=== PATIENT | female | born 1985 | race Hispanic/Latino ===

== ENCOUNTER 2020-08-19 21:21 | Emergency (ER) | payer OTHER ==
[~2020-08-19] VITALS: Ht 154.9 cm; Wt 83.9 kg
[~2020-08-19 21:21] MED LIST: ALBUTEROL SULF8.5 GM; DULCOLAX SUPP10 MG PR; PRILOSEC40 MG PO; PROTONIX40 MG PO; SIMVASTATIN20 MG PO; ZOFRAN4 MG PO
--- NOTE | 2020-08-19 21:30 | Emergency Department Note ---
History of Present Illnes History of Present Illness Chief Complaint: > 20 Weeks History of Present Illness This is a 35 year old female presents to the ED for pelvic cramping with concern for not being able to feel the baby move. . Historian: Patient Arrival Mode: Car Onset (how long ago): day(s) (1) Location: suprapubic R flank Radiation: Reports non-radiation Severity: mild Onset quality: gradual Duration (how long): day(s) (1) Timing of current episode: constant Progression: unchanged Chronicity: new Context: Denies recent illness, Denies recent surgery, Denies recent immobilization, Denies recent travel, Denies trauma/injury, Denies new medications, Denies hx of DVT/PE, Denies non-compliance w/ medications, Denies other Relieving factors: none Exacerbating factors: none Associated symptoms: Denies denies other symptoms, Denies confusion, Denies c hest pain, Denies cough, Denies diaphoresis, Denies fever/chills, Denies headaches, Denies loss of appetite, Denies malaise, Denies nausea/vomiting, Denies rash, Denies seizure, Denies shortness of breath, Denies syncope, Denies weakness, Denies other Past Medical/Family History Physician Review I have reviewed the patient's past medical and family history. Any updates have been documented here. Past Medical History Recent Fever: No Clinical Suspicion of Infectio: No New/Unexplained Change in Ment: No Past Medical History: None Other Medical History: FIBROMYALGIA PCOS Past Surgical History: None Social History Smoking Cessation: Never Smoker Alcohol Use: None Any Illegal Drug Use: No Other Last Tetanus: UNK Review of Systems Review of Systems Constitutional: Reports no symptoms EENTM: Reports no symptoms Cardiovascular: Reports no symptoms Respiratory: Reports no symptoms Gastrointestinal: Reports abdominal pain (suprapubic) Genitourinary: Reports no symptoms Musculoskeletal: Reports no symptoms Integumentary: Reports no symptoms Neurological: Reports no symptoms Psychological: Reports no symptoms Endocrine: Reports no symptoms Hematological/Lymphatic: Reports no symptoms Physical Exam Related Data Allergies: Coded Allergies: Penicillins (Verified Allergy, Unknown, 04/14/08) Vital signs reviewed: Yes Physical Exam CONSTITUTIONAL Constitutional: Present well-developed, Present well-nourished HENT HENT: Present normocephalic, Present atraumatic, Present oropharynx clear/moist, Present nose normal HENT L/R: Present left ext ear normal, Present right ext ear normal EYES Eyes: Reports PERRL, Reports conjunctivae normal NECK Neck: Present ROM normal PULMONARY Pulmonary: Present effort normal, Present breath sounds normal CARDIOVASCULAR Cardiovascular: Present regular rhythm, Present heart sounds normal, Present capillary refill normal, Present normal rate GASTROINTESTINAL Abdominal: Present soft, Present bowel sounds normal, Present tender (suprapubic) GENITOURINARY Genitourinary: Present exam deferred SKIN Skin: Present warm, Present dry MUSCULOSKELETAL Musculoskeletal: Present ROM normal NEUROLOGICAL Neurological: Present alert, Present oriented x 3, Present no gross motor or sensory deficits PSYCHOLOGICAL Psychological: Present mood/affect normal, Present judgement normal Results Laboratory Lab results reviewed: Yes Laboratory comments UA : few bacteria Assessment & Plan Medical Decision Making MDM Diff Dx : demise, placentia previa, placentia abruptio Reassessment Reassessment Bedside US demonstrates active IUP with normal FHR. Assessment & Plan Final Impression: (1) UTI (urinary tract infection) (2) Discomfort during Depart Disposition: HOME, SELF-[facility] Meds Active Scripts Ondansetron Hcl* (ZOFRAN*) 4 Mg Tablet, 4 MG PO Q4HR, #20 Prov:SIGRID TOPETE NP 01/27/17 Simvastatin (SIMVASTATIN) 20 Mg Tablet, 20 MG PO HS for 30 Days Prov:SIGRID TOPETE [employer] 01/27/17 Reported Medications Albuterol Sulfate (ALBUTEROL SULFATE HFA) 8.5 Gm Hfa.aer.ad 02/04/17 ALEXANDREA CARLIN DO Aug 19, 2020 21:30
[2020-08-19 21:49] LABS: BILIRUBIN,URINE NEGATIVE (NEGATIVE); CLARITY,URINE CLOUDY (CLEAR); COLOR,URINE YELLOW (YELLOW); KETONES,URINE NEGATIVE (NEGATIVE); LEUKOCYTE ESTERASE ,URINE NEGATIVE (NEGATIVE); NITRITE,URINE NEGATIVE (NEGATIVE); PROTEIN,URINE DIPSTICK NEGATIVE (NEGATIVE); URINE UROBILINOGEN 0.2 mg/dL (0.2 - 1)
--- OUTSIDE RECORDS SUMMARY | 2020-08-19 22:10 | XMS REPORT | Continuity of Care Document ---
Author Author [employer] Information [employer] Address Unknown Phone Unavailable Care Team Providers Care Instructor Of Education Name Role Phone [employer] Information Exchange Unavailable Un available Problems Problem Status Onset Date Classification Date Reported Comments Source Unspecified abdominal pain 03/17/2017 03/20/2017 [facility] ABDOMINAL PAIN Active 03/16/2017 [facility] Discharge Diagnosis: Epigastric burning sensation 06/01/2015 06/04/2015 [facility] Discharge Diagnosis: Gastritis 06/01/2015 06/04/2015 [facility] Discharge Diagnosis: Abdominal wall pain in both upper quadrants 06/01/2015 06/04/2015 [facility] SHORTNESS OF BREATH Active 06/01/2015 [facility] Discharge Diagnosis: Pain, abdominal, nonspecific 05/21/2015 05/24/2015 [facility] ABDOMINAL PAIN, NAUSEA AND VOMITTING Active 05/21/2015 [facility] Discharge Diagnosis: Sinus headache 10/23/2014 10/26/2014 [facility] Discharge Diagnosis: Asthma exacerbation 10/23/2014 10/26/2014 [facility] HEADACH/ASTHMA/DRAINAGE Active 10/23/2014 [facility] Asthma (disorder) Active Problem 03/20/2017 [facility] Migraine (disorder) Active Problem 03/20/2017 [facility] Multiple gastric ulcers (disorder) Resolved Problem 03/2017 [facility] Polycystic ovaries (disorder) Active Problem 03/2017 [facility] Medications Medication Details Route Status Patient Instructions Ordering Provider Order Date Source Ondansetron 4 MG Disintegrating Tablet [Zofran] 4 mg = 1 tab, PO, BID, PRN Nausea and Vomiting, Dissolve tab under tongue, X 5 day, # 10 tab, 0 Refill(s) Active 03/17/2017 [facility] tramadol hydrochloride 50 MG Oral Tablet 50 mg = 1 tab, PO, BID, X 15 day, # 30 tab, 0 Refill(s) Active 03/17/2017 [facility] Zofran 4 mg, Route: IVP, Drug form: INJ, ONCE, Dosing Weight 84.233, kg, Priority: STAT, Start date: 03/17/17 0:11:00 CDT, Stop date: 03/17/17 0:11:00 CDT Inactive 03/17/2017 [facility] Morphine 4 mg, Route: IVP, ONC E, Dosing Weight 84.233, kg, Priority: STAT, Start date: 03/17/17 0:11:00 CDT, Stop date: 03/17/17 0:11:00 CDT Inactive 03/17/2017 [facility] Metoclopramide 10 MG Oral Tablet [Reglan] 10 mg, PO, Q6H, PRN nausea/vomiting, # 20 tab, 0 Refill(s) Active 06/01/2015 [facility] Dicyclomine Hydrochloride 20 MG Oral Tablet [Bentyl] 20 mg = 1 tab, PO, QID, # 20 tab, 0 Refill(s) Active 06/01/2015 [facility] Sucralfate 100 MG/ML Oral Suspension 1 gm = 10 ml, PO, Before Meals & Bedtime, # 240 ml, 0 Refill(s) Active 06/01/2015 [facility] GI cocktail Notes: [place] = antacid with simethicone 22.5 mL - lidocaine viscous 7.5 mL Inactive 06/01/2015 [facility] Ketorolac 4 days MEDICA TION WASTE Product Size: 30 mg Product Wasted: ___ mg Inactive 06/01/2015 [facility] pantoprazole 40 mg, Route: IVP , ONCE, Dosing Weight 79.545, kg, For IV push reconstitute with 10 ml 0.9% sodium chloride and push over at least 3 minutes, Priority: STAT, Start date: 06/01/15 3:12:00, Stop date: 06/01/15 3:12:00 Inactiv e 06/01/2015 [facility] Metoclopramide 10 mg, Route: I HOG HAND[employer]ER, Drug form: INJ, ONCE, Dosing Weight 79.545, kg, Priority: STAT, Start date: 06/01/15 3:12:00, Stop date: 06/01/15 3:12:00 Inactiv e 06/01/2015 [facility] Saline Flush 0.9% Notes: (Same as: BD Posiflush) Inactive 06/01/2015 [facility] Dicyclomine 20 mg, Route: IM, ONCE, Dosing Weight 79.659, kg, Priority: STAT, Start date: 06/01/15 3:12:00, Stop date: 06/01/15 3:12:00 Inactive 06/01/2015 [facility] Ondansetron 8 MG Disintegrating Tablet [Zofran] Special Instructions: Dissolve tab under tongue Active 05/21/2015 [facility] tramadol hydrochloride 50 MG Oral Tablet 50 mg = 1 tab, PO, Q6H, PRN as needed for pain, # 12 tab, 0 Refill(s) Active 05/21/2015 [facility] Sucralfate 100 MG/ML Oral Suspension 1 gm = 10 ml, PO, BID, PRN ABDOMINAL PAIN, # 100 mL, 0 Refill(s) Active 05/21/2015 [facility] Omeprazole 20 MG Enteric Coated Capsule [Prilosec] 20 mg = 1 cap, PO, Daily, # 14 cap, 0 Refill(s) Active 05/21/2015 [facility] GI cocktail Notes: [place] = antacid with simethicone 22.5 mL - lidocaine viscous 7.5 mL Inactive 05/21/2015 [facility] Morphine Notes: (Same as: MORP emma Sulfate) Inactive 05/21/2015 [facility] Protonix Notes: For IV push re constitute with 10 ml 0.9% sodium chloride and push over 2 minutes. (Same as: Protonix) Inactive 05/21/2015 [facility] Zofran Notes: (Same as: Zofran ) MEDICATION WASTE Product Size: 4 mg Product Wasted: ___ mg Inactive 05/21/2015 [facility] Sodium Chloride 0.154 MEQ/ML Injectable Solution 1,000 mL, 1,000 ml/hr, Infuse Over: 1 hr, Route: IV, 1,000, Drug form: INJ, ONCE, Priority: STAT, Dosing Weight 66.818 kg, Start date: 05/21/15 5:40:00, Duration: 1 doses or times, Stop date: 05/21/15 5:40:00 Inactive 05/21/2015 [facility] albuterol CFC free 90 mcg/inh inhalation aerosol with adapter 2 puff, INHALATION, Q4H, for wheezing, # 9 gm, 0 Refill(s) Active 10/23/2014 [facility] Sodium Chloride 0.111 MEQ/ML Nasal [place] [[place] brand of sodium chloride] 2 spray, NASAL, QID, # 1 btl, 0 Refill(s ) Active 10/23/2014 [facility] predniSONE 20 mg oral tablet 4 0 mg = 2 tab, PO, Daily, # 8 tab, 0 Refill(s) Active 10/23/2014 [facility] 24 HR Pseudoephedrine Hydrochloride 240 MG Extended Release Tablet [Sudafed] 240 mg = 1 tab, PO, Daily, for congestio n, # 5 tab, 0 Refill(s) Active 10/23/2014 [facility] ibuprofen 600 mg oral tablet S pecial Instructions: Take with food Active 10/23/2014 [facility] Ibuprofen Notes: (Same as: Mot rin) "Do Not Crush" Give with food. Inactive 10/23/2014 [facility] Tylenol Notes: Do not exceed 4 gm/day. (Same as: Tylenol) Inactive 10/23/2014 [facility] Allergies, Adverse Reactions, Alerts Substance Category Reaction Severity Reaction type Status Date Reported Comments Source penicillins Assertion Drug allergy Active [facility] Immunizations No Data Provided for This Section Results Order Name Results Value Reference Range Date Interpretation Comments Source CHEM PANEL Magnesium Lvl 1.9 1.8 - 2.4 03/17/2017 [facility] CHEM PANEL Phosphorus 4.1 2.5 - 4.5 03/17/2017 [facility] CHEM PANEL Lipase Lvl 173 73 - 393 03/17/2017 [facility] ELECTROLYTES AGAP 13.1 10.0 - 20.0 03/17/2017 [facility] ELECTROLYTES Globulin 4.5 2.7 - 4.2 03/17/2017 [facility] ELECTROLYTES B/C Ratio 8 6 - 25 03/17/2017 [facility] ELECTROLYTES A/G Ratio 0.9 0.7 - 1.6 03/17/2017 [facility] ELECTROLYTES eGFR 98 03/17/2017 Result Comment: The eGFR is calculated using the CKD-EPI formula. In most young, healthy individuals the eGFR will be >90 mL/min/1.73m2. The eGFR declines with age. An eGFR of 60-89 may be normal in some populations, particularly the elderly, for whom the CKD-EPI formula has not been extensively validated. Use of the eGFR is not recommended in the following populations:

Individuals with unstable creatinine concentrations, including patients and those with serious co-morbid conditions.

Patients with extremes in muscle mass or diet.

The data above are obtained from the National Kidney Disease Education Program (NKDEP) which additionally recommends that when the eGFR is used in patients with extremes of body mass index for purposes of drug dosing, the eGFR should be multiplied by the estimated BMI. [facility] ELECTROLYTES Bili Total 0.3 0.2 - 1.3 03/17/2017 [facility] ELECTROLYTES Alk Phos 71 39 - 136 03/17/2017 [facility] ELECTROLYTES AST 24 0 - 37 03/17/2017 [facility] ELECTROLYTES CO2 25 24 - 32 03/17/2017 [facility] ELECTROLYTES Chloride Lvl 104 95 - 109 03/17/2017 [facility] ELECTROLYTES Potassium Lvl 4.1 3.5 - 5.1 03/17/2017 [facility] ELECTROLYTES Sodium Lvl 138 135 - 145 03/17/2017 [facility] ELECTROLYTES Calcium Lvl 9.5 8.5 - 10.5 03/17/2017 [facility] ELECTROLYTES Albumin Lvl 4.1 3.5 - 5.0 03/17/2017 [facility] ELECTROLYTES ALT 42 0 - 65 03/17/2017 [facility] ELECTROLYTES Total Protein 8.6 6.4 - 8.4 03/17/2017 [facility] ELECTROLYTES Creatinine Lvl 0.8 0 0.50 - 1.40 03/17/2017 [facility] ELECTROLYTES BUN 6 7 - 22 03/17/2017 [facility] ELECTROLYTES Glucose Lvl 104 70 - 99 03/17/2017 [facility] ENDOCRINOLOGY S Preg Ne gative *NA* (03/17/17 12:22 AM) Negative 03/17/2017 [facility] HEMATOLOGY Lymphocytes 34.4 20.0 - 40.0 03/17/2017 [facility] HEMATOLOGY Monocytes 4.7 2.0 - 12.0 03/17/2017 [facility] HEMATOLOGY Lymphocytes # 3.7 1.0 - 5.5 03/17/2017 [facility] HEMATOLOGY Segs 59.5 45.0 - 75.0 03/17/2017 [facility] HEMATOLOGY Eosinophils # 0.1 0.0 - 0.5 03/17/2017 [facility] HEMATOLOGY Monocytes # 0.5 0.0 - 0.8 03/17/2017 [facility] HEMATOLOGY Segs-Bands # 6.4 1.5 - 8.1 03/17/2017 [facility] HEMATOLOGY Basophils 0.3 0.0 - 1.0 03/17/2017 [facility] HEMATOLOGY Eosinophils 1.1 0.0 - 4.0 03/17/2017 [facility] HEMATOLOGY PTT 32.9 22.9 - 35.8 03/17/2017 [facility] HEMATOLOGY PT 13.0 12.0 - 14.7 03/17/2017 [facility] HEMATOLOGY INR 0.96 0.85 - 1.17 03/17/2017 [facility] HEMATOLOGY Platelet 291 133 - 450 03/17/2017 [facility] HEMATOLOGY MPV 10.0 7.4 - 10.4 03/17/2017 [facility] HEMATOLOGY RDW 13.3 11.5 - 14.5 03/17/2017 [facility] MCH 28.1 27.0 - 31.0 03/17/2017 [facility] MCHC 33.9 32.0 - 36.0 03/17/2017 [facility] HEMATOLOGY Hct 43.8 36.0 - 48.0 03/17/2017 [facility] HEMATOLOGY MCV 82.7 80.0 - 98.0 03/17/2017 [facility] Hgb 14.9 12.0 - 16.0 03/17/2017 [facility] WBC 10.8 3.7 - 10.4 03/17/2017 [facility] RBC 5.30 4.20 - 5.40 03/17/2017 [facility] URINE AND STOOL UA Urobilinogen 0.2 0.1 - 1.0 03/17/2017 [facility] URINE AND STOOL UA Blood Negative (03/16/17 10:13 PM) Negative 03/17/2017 [facility] URINE AND STOOL UA Bili Negative *NA* (03/16/17 10:13 PM) Negative 03/17/2017 [facility] URINE AND STOOL UA Nitrite Negative (03/16/17 10:13 PM) Negative 03/17/2017 [facility] URINE AND STOOL UA Leuk Est Moderate *ABN* (03/16/17 10:13 PM) Negative 03/17/2017 [facility] URINE AND STOOL UA Spec Grav <=1.005 *NA* (03/16/17 10:13 PM) <=1.030 03/17/2017 [facility] URINE AND STOOL UA pH 6.5 5.0 - 8.0 03/17/2017 [facility] URINE AND STOOL UA Protein Negative (03/16/17 10:13 PM) Negative 03/17/2017 [facility] URINE AND STOOL UA Glucose Negative (03/16/17 10:13 PM) Negative 03/17/2017 [facility] URINE AND STOOL UA Ketones Negative *NA* (03/16/17 10:13 PM) Negative 03/17/2017 [facility] URINE AND STOOL UA Color Yellow *NA* (03/16/17 10:13 PM) Yellow 03/17/2017 [facility] URINE AND STOOL UA Turbidity Clear (03/16/17 10:13 PM) Clear 03/17/2017 [facility] URINE AND STOOL UA Bacteria Few /HPF None Seen /HPF 03/17/2017 [facility] URINE AND STOOL UA RBC 0-2 /HPF 0 - 2 03/17/2017 [facility] URINE AND STOOL UA WBC 0-2 /HPF None Seen /HPF 03/17/2017 [facility] URINE AND STOOL UA Sq Epi Moderate /LPF Few /LPF 03/17/2017 [facility] URINE AND STOOL UA Bacteria None Seen (06/01/15 4:56 AM) None Seen 06/01/2015 [facility] URINE AND STOOL UA Leuk Est Negative (06/01/15 4:56 AM) Negative 06/01/2015 [facility] URINE AND STOOL UA Nitrite Negative (06/01/15 4:56 AM) Negative 06/01/2015 [facility] URINE AND STOOL UA Sq Epi Few /LPF Few /LPF 06/01/2015 [facility] URINE AND STOOL UA Urobilinogen 0.2 0.1 - 1.0 06/01/2015 [facility] URINE AND STOOL UA WBC 0-2 /HPF None Seen /HPF 06/01/2015 [facility] URINE AND STOOL UA RBC 0-2 /HPF 0 - 2 06/01/2015 [facility] URINE AND STOOL UA Spec Grav 1.015 <=1.030 06/01/2015 [facility] URINE AND STOOL UA pH 7.0 5.0 - 8.0 06/01/2015 [facility] URINE AND STOOL UA Protein Negative (06/01/15 4:56 AM) Negative 06/01/2015 [facility] URINE AND STOOL UA Color Yellow *NA* (06/01/15 4:56 AM) Yellow 06/01/2015 [facility] URINE AND STOOL UA Turbidity Clear (06/01/15 4:56 AM) Clear 06/01/2015 [facility] URINE AND STOOL UA Ketones Negative *NA* (06/01/15 4:56 AM) Negative 06/01/2015 [facility] URINE AND STOOL UA Blood Small *ABN* (06/01/15 4:56 AM) Negative 06/01/2015 [facility] URINE AND STOOL UA Glucose Negative (06/01/15 4:56 AM) Negative 06/01/2015 [facility] URINE AND STOOL UA Bili Negative *NA* (06/01/15 4:56 AM) Negative 06/01/2015 [facility] CARDIAC ENZYMES Troponin-I <0.02 0.00 - 0.40 06/01/2015 [facility] CHEM PANEL Amylase Lvl 73 25 - 115 06/01/2015 [facility] CHEM PANEL Lipase Lvl 230 73 - 393 06/01/2015 [facility] CHEM PANEL A/G Ratio 0.9 0.7 - 1.6 06/01/2015 [facility] CHEM PANEL Globulin 4.6 2.0 - 4.0 06/01/2015 [facility] CHEM PANEL B/C Ratio 11 6 - 25 06/01/2015 [facility] CHEM PANEL AGAP 11.7 10.0 - 20.0 06/01/2015 [facility] CHEM PANEL eGFR 99 06/01/2015 Result Comment: The eGFR is calculated using the CKD-EPI formula. In most young, healthy individuals the eGFR will be >90 mL/min/1.73m2. The eGFR declines with age. An eGFR of 60-89 may be normal in some populations, particularly the elderly, for whom the CKD-EPI formula has not been extensively validated. Use of the eGFR is not recommended in the following populations:

Individuals with unstable creatinine concentrations, including patients and those with serious co-morbid conditions.

Patients with extremes in muscle mass or diet.

The data above are obtained from the National Kidney Disease Education Program (NKDEP) which additionally recommends that when the eGFR is used in patients with extremes of body mass index for purposes of drug dosing, the eGFR should be multiplied by the estimated BMI. [facility] CHEM PANEL Total Protein 8.6 6.4 - 8.4 06/01/2015 [facility] CHEM PANEL AST 24 0 - 37 06/01/2015 [facility] CHEM PANEL Chloride Lvl 104 95 - 109 06/01/2015 [facility] CHEM PANEL Calcium Lvl 8.9 8.5 - 10.5 06/01/2015 [facility] CHEM PANEL CO2 28 24 - 32 06/01/2015 [facility] CHEM PANEL Potassium Lvl 3.7 3.5 - 5.1 06/01/2015 [facility] CHEM PANEL Sodium Lvl 140 135 - 145 06/01/2015 [facility] CHEM PANEL Creatinine Lvl 0.8 0.5 - 1.4 06/01/2015 [facility] CHEM PANEL Alk Phos 72 39 - 136 06/01/2015 [facility] CHEM PANEL Albumin Lvl 4.0 3.5 - 5.0 06/01/2015 [facility] CHEM PANEL ALT 36 0 - 65 06/01/2015 [facility] CHEM PANEL Glucose Lvl 107 70 - 99 06/01/2015 [facility] CHEM PANEL BUN 9 7 - 22 06/01/2015 [facility] CHEM PANEL Bili Total 0.2 0.2 - 1.3 06/01/2015 [facility] ENDOCRINOLOGY S Preg Ne gative *NA* (06/01/15 3:18 AM) Negative 06/01/2015 [facility] HEMATOLOGY MCH 28.5 27.0 - 31.0 06/01/2015 [facility] HEMATOLOGY MCHC 33.9 32.0 - 36.0 06/01/2015 [facility] HEMATOLOGY MCV 84.2 80.0 - 98.0 06/01/2015 [facility] HEMATOLOGY MPV 9.8 7.4 - 10.4 06/01/2015 [facility] HEMATOLOGY RDW 12.4 11.5 - 14.5 06/01/2015 [facility] HEMATOLOGY Platelet 293 133 - 450 06/01/2015 [facility] HEMATOLOGY Hct 46.0 36.0 - 48.0 06/01/2015 [facility] HEMATOLOGY Hgb 15.6 12.0 - 16.0 06/01/2015 [facility] HEMATOLOGY RBC 5.46 4.20 - 5.40 06/01/2015 [facility] HEMATOLOGY WBC 11.2 3.7 - 10.4 06/01/2015 [facility] HEMATOLOGY Eosinophils # 0.2 0.0 - 0.5 06/01/2015 [facility] HEMATOLOGY Monocytes # 0.6 0.0 - 0.8 06/01/2015 [facility] HEMATOLOGY Lymphocytes # 4.6 1.0 - 5.5 06/01/2015 [facility] HEMATOLOGY Segs-Bands # 5.8 1.5 - 8.1 06/01/2015 [facility] HEMATOLOGY Eosinophils 2.1 0.0 - 4.0 06/01/2015 [facility] HEMATOLOGY Monocytes 5.0 2.0 - 12.0 06/01/2015 [facility] HEMATOLOGY Segs 51.6 45.0 - 75.0 06/01/2015 [facility] HEMATOLOGY Lymphocytes 41.1 20.0 - 40.0 06/01/2015 [facility] HEMATOLOGY Basophils 0.2 0.0 - 1.0 06/01/2015 [facility] CHEM PANEL Lipase Lvl 172 73 - 393 05/21/2015 [facility] CHEM PANEL eGFR 117 05/21/2015 <sup>1</sup>Result Comment: The eGFR is calculated using the CKD-EPI formula. In most young, healthy individuals the eGFR will be >90 mL/min/1.73m2. The eGFR declines with age. An eGFR of 60-89 may be normal in some populations, particularly the elderly, for whom the CKD-EPI formula has not been extensively validated. Use of the eGFR is not recommended in the following populations:& lt;br/>
Individuals with unstable creatinine concentrations, including patients and those with serious co-morbid conditions.

Patients with extremes in muscle mass or diet.

The data above are obtained from the National Kidney Disease Education Program (NKDEP) which additionally recommends that when the eGFR is used in patients with extremes of body mass index for purposes of drug dosing, the eGFR should be multiplied by the estimated BMI. [facility] CHEM PANEL AST 29 0 - 37 05/21/2015 [facility] CHEM PANEL CO2 23 24 - 32 05/21/2015 [facility] CHEM PANEL Calcium Lvl 8.5 8.5 - 10.5 05/21/2015 [facility] CHEM PANEL Bili Total 0.2 0.2 - 1.3 05/21/2015 [facility] CHEM PANEL Total Protein 7.8 6.4 - 8.4 05/21/2015 [facility] CHEM PANEL ALT 39 0 - 65 05/21/2015 [facility] CHEM PANEL Albumin Lvl 3.6 3.5 - 5.0 05/21/2015 [facility] CHEM PANEL Alk Phos 64 39 - 136 05/21/2015 [facility] CHEM PANEL Glucose Lvl 104 70 - 99 05/21/2015 <sup>2</sup>Interpretive Data: Adult ref erence range values reflect the clinical guidelines
of the [place] [employer]. [facility] CHEM PANEL Potassium Lvl 3.9 3.5 - 5.1 05/21/2015 [facility] CHEM PANEL BUN 5 7 - 22 05/21/2015 [facility] CHEM PANEL Sodium Lvl 141 135 - 145 05/21/2015 [facility] CHEM PANEL Chloride Lvl 108 95 - 109 05/21/2015 [facility] CHEM PANEL Creatinine Lvl 0.7 0.5 - 1.4 05/21/2015 [facility] CHEM PANEL A/G Ratio 0.9 0.7 - 1.6 05/21/2015 [facility] CHEM PANEL AGAP 13.9 10.0 - 20.0 05/21/2015 [facility] CHEM PANEL Globulin 4.2 2.0 - 4.0 05/21/2015 [facility] CHEM PANEL B/C Ratio 7 6 - 25 05/21/2015 [facility] ENDOCRINOLOGY hCG Tot <1 05/21/2015 <sup>3</sup>Interpretive Data: Reference Range:
Male 0 - 5 mIU/mL
Non- Female 0 - 5 mIU/mL

Note: hCG result should be used in conjunction with symptoms, results
of other tests, and clinical impressions.

Weeks of Gestation hCG (mIU/mL)

3 6 - 71
4 10-750
5 217 - 7,138
6 158 -31,795
7 3,697 - 163,563
8 32,065 - 149,571
9 63,803 - 151,410
10 46,506 - 186,977
11 27,832 - 210,612
14 13,950 - 62,530
15 12,039 - 70,971
16 9,040 - 56,451
17 8,175 - 55,868
18 8,099 - 58,176 [facility] HEMATOLOGY Lymphocytes # 3.1 1.0 - 5.5 05/21/2015 [facility] HEMATOLOGY Monocytes # 0.5 0.0 - 0.8 05/21/2015 [facility] HEMATOLOGY Eosinophils # 0.2 0.0 - 0.5 05/21/2015 [facility] HEMATOLOGY Segs 55.2 45.0 - 75.0 05/21/2015 [facility] HEMATOLOGY Lymphocytes 36.3 20.0 - 40.0 05/21/2015 [facility] HEMATOLOGY Eosinophils 2.6 0.0 - 4.0 05/21/2015 [facility] HEMATOLOGY Monocytes 5.8 2.0 - 12.0 05/21/2015 [facility] HEMATOLOGY Segs-Bands # 4.8 1.5 - 8.1 05/21/2015 [facility] HEMATOLOGY Basophils 0.1 0.0 - 1.0 05/21/2015 [facility] HEMATOLOGY MPV 9.7 7.4 - 10.4 05/21/2015 [facility] HEMATOLOGY Platelet 236 133 - 450 05/21/2015 [facility] Hgb 14.1 12.0 - 16.0 05/21/2015 [facility] Hct 41.6 36.0 - 48.0 05/21/2015 [facility] MCV 82.4 80.0 - 98.0 05/21/2015 [facility] MCHC 34.0 32.0 - 36.0 05/21/2015 [facility] MCH 28.0 27.0 - 31.0 05/21/2015 [facility] RDW 12.6 11.5 - 14.5 05/21/2015 [facility] WBC 8.6 3.7 - 10.4 05/21/2015 [facility] RBC 5.04 4.20 - 5.40 05/21/2015 [facility] URINE AND STOOL UA Leuk Est Negative (05/21/15 6:07 AM) Negative 05/21/2015 [facility] URINE AND STOOL UA Nitrite Negative (05/21/15 6:07 AM) Negative 05/21/2015 [facility] URINE AND STOOL UA Spec Grav 1.010 <=1.030 05/21/2015 [facility] URINE AND STOOL UA Turbidity Clear (05/21/15 6:07 AM) Clear 05/21/2015 [facility] URINE AND STOOL UA Protein Negative (05/21/15 6:07 AM) Negative 05/21/2015 [facility] URINE AND STOOL UA pH 6.0 5.0 - 8.0 05/21/2015 [facility] URINE AND STOOL UA Blood Trace *ABN* (05/21/15 6:07 AM) Negative 05/21/2015 [facility] URINE AND STOOL UA Color Yellow *NA* (05/21/15 6:07 AM) Yellow 05/21/2015 [facility] URINE AND STOOL UA Urobilinogen 0.2 0.1 - 1.0 05/21/2015 [facility] URINE AND STOOL UA Bili Negative *NA* (05/21/15 6:07 AM) Negative 05/21/2015 [facility] URINE AND STOOL UA Ketones Negative *NA* (05/21/15 6:07 AM) Negative 05/21/2015 [facility] URINE AND STOOL UA Glucose Negative (05/21/15 6:07 AM) Negative 05/21/2015 [facility] URINE AND STOOL UA WBC 0-2 /HPF None Seen /HPF 05/21/2015 [facility] URINE AND STOOL UA Sq Epi Occasional /LPF Few /LPF 05/21/2015 [facility] URINE AND STOOL Micro? Performed (05/21/15 6:07 AM) 05/21/2015 [facility] URINE AND STOOL UA Mucus Rare /LPF None Seen /LPF 05/21/2015 [facility] URINE AND STOOL UA Bacteria None Seen (05/21/15 6:07 AM) None Seen 05/21/2015 [facility] URINE AND STOOL UA RBC 0-2 /HPF 0 - 2 05/21/2015 [facility] URINE CHEM U Preg Negat janay (05/21/15 6:07 AM) Negative 05/21/2015 [facility] Pathology Reports No Data Provided for This Section Diagnostic Reports Report Value Date Source ED Abdomen/Pelvis IV contrast only CT Study: ED Abdomen/Pelvis IV contrast only CT Clinical Indication: Upper abdominal pain pain, acute - ABD PAIN Comparison: CT abdomen and pelvis from 05/21/2015 TECHNIQUE: Multiple axial CT images of the abdomen and pelvis were acquired following the administration of intravenous contrast. Sagittal and coronal reformatted images were performed. CT Radiation Dose DLP 973.72 mGy-cm FINDINGS: The visualized lung bases are clear bilaterally. Patient is status post cholecystectomy. Liver, pancreas, spleen, adrenal glands, and kidneys are normal in appearance. No intrahepatic or extrahepatic biliary duct dilatation is seen. Urinary bladder, uterus, and right ovary are unremarkable. Lobulated, hypodense, rim-enhancing 2.1 cm left ovarian cystic lesion is seen. Trace free pelvic fluid is seen. The visualized hollow viscera and appendix are normal in appearance. No free air or pathologic adenopathy is seen. The superficial soft tissues are unremarkable. No suspicious osseous lesions are seen. IMPRESSION: 1. No acute intra-abdominal/pelvic abnor mality. 2. Lobulated, rim-enhancing 2.1 cm left ovarian cystic lesion which may represent corpus luteal cyst. SL: SLEE-PC 03/17/2017 [facility] Abdomen RUQ US Name: ASHA QUINTANILLA : 1985 SEX: F Ordering Physician: Alex Plunkett Abdomen RUQ US : Jun 01, 2015 04:06:00 AM. CLINICAL INDICATION: Abdominal pain, acute Comparison Examination: None TECHNIQUE: Grayscale and limited color sonographic evaluation of the right upper quadrant of the abdomen and gallbladder region was performed with standard technique. FINDINGS: LIVER: The visualized liver shows normal size, contour, and morphology with normal parenchymal echo texture. BILE DUCTS: There is no intrahepatic biliary ductal dilation. The common bile duct measures 2 mm at the chapis hepatis. GALLBLADDER: Gallbladder contains gallstones and subcentimeter anterior polyps ( 5 and 4 mm). No gallbladder wall thickening. Negative Jovel's sign. PANCREAS: The visualized pancreas appears unremarkable. KIDNEY: The right kidney measures 10.7 cm in length. There is normal renal contour and morphology, with normal parenchymal echotexture. There is no hydronephrosis. AORTA AND INFERIOR VENA CAVA: Visualized aorta is unremarkable. IVC is not imaged. ASCITES: There is no right upper quadrant abdominal ascites. IMPRESSION: Cholelithiasis without evidence of cholecystitis. Subcentimeter gallbladder polyps. SL: 23 06/01/2015 [facility] Renal Stone CT Name: ASHA QUINTANILLA : 1985 SEX: F Ordering Physician: Ilia Gomez Renal Stone CT : May 21, 2015 06:40:00 AM. CLINICAL INDICATION: Flank Pain Comparison Examination: None TECHNIQUE: Renal Stone protocol CT is performed without iodinated contrast. Multi-detector helical CT axial images were obtained from the level of the diaphragm through the lower pelvis. Coronal and sagittal reconstructions were obtained and viewed on the workstation. Dose: The total exam DLP is 928.62 mGy-cm. FINDINGS: The lung bases are clear. There are no renal calculi, contour deforming masses or hydronephrosis. There is no ureterectasis or ureteral calculi. The bladder is unremarkable. Limited noncontrast evaluation of the gallbladder, spleen, pancreas, and adrenals is unremarkable. There is no abdominal lymphadenopathy or ascites. Mild hepatic steatosis. Mild colonic diverticulosis without evidence of diverticulitis. No evidence of bowel obstruction.Appendix is within normal limits. The uterus and adnexa appear unremarkable on noncontrast CT assessment. Free fluid in right adnexa. No suspicious osseous lesion. IMPRESSION: No evidence of obstructing urolithiasis. Mild colonic diverticulosis without evidence of diverticulitis. Free fluid in right adnexa, could represent recent ruptured ovarian cyst. SL: 23 05/21/2015 [facility] Consultation Notes No Data Provided for This Section Discharge Summaries No Data Provided for This Section History and Physicals No Data Provided for This Section Vital Signs Vital Sign Value Date Comments Source Heart Rate 83 03/17/2017 [facility] Systolic (mm Hg) 126 03/17/2017 [facility] Diastolic (mm Hg) 76 03/17/2017 [facility] Respitory Rate 16 03/17/2017 [facility] Temperature Oral (F) 98.2 F 03/17/2017 [facility] Heart Rate 87 03/17/2017 [facility] Systolic (mm Hg) 121 03/17/2017 [facility] Diastolic (mm Hg) 78 03/17/2017 [facility] Respitory Rate 16 03/17/2017 [facility] Heart Rate 93 03/17/2017 [facility] Respitory Rate 16 03/17/2017 [facility] Systolic (mm Hg) 139 03/17/2017 [facility] Diastolic (mm Hg) 92 03/17/2017 [facility] Weight 84.233 03/17/2017 [facility] BMI Calculated 35.09 03/17/2017 [facility] Height 154.94 cm 03/17/2017 [facility] Temperature Oral (F) 98.5 F 03/17/2017 [facility] Heart Rate 74 06/01/2015 [facility] Systolic (mm Hg) 137 06/01/2015 [facility] Diastolic (mm Hg) 86 06/01/2015 [facility] Respitory Rate 20 06/01/2015 [facility] Temperature Oral (F) 97.8 F 06/01/2015 [facility] Weight 79.545 06/01/2015 [facility] Respitory Rate 20 06/01/2015 [facility] BMI Calculated 33.13 06/01/2015 [facility] Temperature Oral (F) 99.2 F 06/01/2015 [facility] Heart Rate 119 06/01/2015 [facility] Systolic (mm Hg) 143 06/01/2015 [facility] Diastolic (mm Hg) 98 06/01/2015 [facility] Height 154.94 cm 06/01/2015 [facility] Temperature Oral (F) 98.1 F 05/21/2015 [facility] Respitory Rate 18 05/21/2015 [facility] Systolic (mm Hg) 144 05/21/2015 [facility] Diastolic (mm Hg) 96 05/21/2015 [facility] Heart Rate 114 05/21/2015 [facility] Weight 79.659 05/21/2015 [facility] BMI Calculated 33.18 05/21/2015 [facility] Height 154.94 cm 05/21/2015 [facility] Temperature Oral (F) 98.2 F 05/21/2015 [facility] Systolic (mm Hg) 143 05/21/2015 [facility] Diastolic (mm Hg) 93 05/21/2015 [facility] Heart Rate 118 05/21/2015 [facility] Respitory Rate 18 05/21/2015 [facility] Heart Rate 104 10/23/2014 [facility] Respitory Rate 18 10/23/2014 [facility] Diastolic (mm Hg) 88 10/23/2014 [facility] Systolic (mm Hg) 133 10/23/2014 [facility] BMI Calculated 27.83 10/23/2014 [facility] Weight 66.818 10/23/2014 [facility] Height 154.94 cm 10/23/2014 [facility] Temperature Oral (F) 98.6 F 10/23/2014 [facility] Heart Rate 127 10/23/2014 [facility] Diastolic (mm Hg) 89 10/23/2014 [facility] Respitory Rate 20 10/23/2014 [facility] Systolic (mm Hg) 134 10/23/2014 [facility] Encounters Location Location Details Encounter Type Encounter Number Reason For Visit Attending Provider ADM Date DC Date Status Source [facility] [id number] Mirella Razo 10/23/2014 10/23/2014 [facility] [id number] Alex Middleton 05/21/2015 05/21/2015 [facility] [id number] Alex Plunkett 06/01/2015 06/01/2015 [facility] [id number] Gen Sheehan 03/17/2017 03/17/2017 [facility] Procedures No Data Provided for This Section Assessment and Plan No Data Provided for This Section Plan of Care No Data Provided for This Section Social History Social History Date Source Social History TypeResponse Substance Abuse Use: None. Alcohol Current, Type Liquor. Frequency: 1-2 times per month. Smoking Status Never smoker; Exposure to Tobacco Smoke None; Cigarette Smoking Last 365 Days No; Reg Smoking Cessation Counseling No 05/21/2015 [facility] Family History No Data Provided for This Section Advance Directives No Data Provided for This Section Functional Status No Data Provided for This Section
--- OUTSIDE RECORDS SUMMARY | 2020-08-19 22:10 | XMS REPORT | Clinical Summary ---
Author Author [facility] Organization [facility] Address Unknown Phone Unavailable Care Team Providers Care Tour Production Supervisor Name Role Phone Jae Bolaños PCP Unavailable Sharpless Unavailable Allergies Comments Active Allergy Reactions Severity Noted Date Penicillins Hives 07/09/2015 Numbness, tingling Topiramate Other (See 07/20/2015 Comments) Medications End Date Status Medication Sig Dispensed Refills Start Date Active fluticasone-salmeterol Inhale 1 puff 0 (ADVAIR) 500-50 mcg/dose by mouth via diskus inhaler inhaler 2 (two) times daily. Active omeprazole (PRILOSEC) 40 Take 40 mg by 0 MG capsule mouth daily. Active ergocalciferol (VITAMIN Take 50,000 0 D2) 50,000 unit capsule Units by mouth once a week. Active albuterol HFA (VENTOLIN Inhale 1 puff 0 HFA) 90 mcg/actuation by mouth via inhaler inhaler every 6 (six) hours as needed for Wheezing. Active simvastatin (ZOCOR) 40 MG Take 40 mg by 0 tablet mouth nightly. Active gemfibrozil (LOPID) 600 Take 600 mg 0 MG tablet by mouth 2 (two) times daily before meals. Active ondansetron (ZOFRAN) 8 MG Take by mouth 0 tablet every 8 (eight) hours as needed for Nausea. Active HYDROcodone-acetaminophen Take 1 0 (LORCET-HD) 5-500 mg per capsule by capsule mouth every 6 (six) hours as needed for Pain. Active Problems Problem Noted Date Chronic cholecystitis 07/20/2015 Social History Date Tobacco Use Types Packs/Day Years Used Never Smoker Smokeless Tobacco: Never Used Alcohol Use Drinks/Week oz/Week Comments No Sex Assigned at Date Recorded Not on file Industry Job Start Date Occupation Not on file Not on file Not on file Travel End Travel History Travel Start No recent travel history available. Last Filed Vital Signs Not on file Plan of Treatment Not on file Results Not on fileafter 08/19/2019 Insurance Payer Benefit Subscriber ID Type Phone Address Plan / Group [employer] - [employer] C[employer] xxxxxxxxxxx HMO/POS NETWORK Advance Directives For more information, please contact: [facility] [address] [place] [address] Date Inactivated Comments Code Status Date Activated 07/20/2015 1:48 PM Full Code 07/20/2015 6:22 AM This code status was determined by: Patient
--- OUTSIDE RECORDS SUMMARY | 2020-08-19 22:11 | XMS REPORT | Continuity of Care Document ---
Author Author [facility] t Organization [facility] Address [address] [place] [address] Phone Unavailable Care Team Providers Care Shirt Cleaner Name Role Phone Sudeep Bolaños PCP Unavailable Mario Sheehan Attphys Josue Plunkett Attphys Isidro Middleton Attphys Edgard Razo Attphys Payers Payer Name Policy Type Policy Number Effective Date Expiration Date S ource Problems Condition Name Condition Details Condition Category Status Onset Date Resolution Date Last Treatment Date Treating Clinician Comments Source ABDOMINAL PAIN ABDO MONA PAIN Active 03/16/2017 [facility] Active 2017-03-16 00:00:00 2017-03-23 13:49:00 [facility] Chronic cholecystitis Chronic cholecystitis Disease Active 201 03-24-04 00:00:00 [facility] SHORTNESS OF BREATH SHOR TNESS OF BREATH Active 06/01/2015 [facility] Active 2015-06-01 00:00:00 2015-06-01 06:21:00 [facility] ABDOMINAL PAIN, NAUSEA AND VOMITTING ABDOMINAL PAIN, NAUSEA AND VOMITTING Active 05/21/2015 [facility] Diagnosis Ac tive 2015-05-21 01:00:00 2015-05-21 07:37:00 [facility] HEADACH/ASTHMA/DRAINAGE HEAD ACH/ASTHMA/DRAINAGE Active 10/23/2014 [facility] Diagnosis Active 2014-10-23 00:00:00 2014-10-23 15:52:00 [facility] Multiple gastric ulcers (disorder) Multiple gastric ulcers (disorder) Resolved Problem 03/20/2017 [facility] Problem Resolved 2017-03-20 03:26:21 [facility] Asthma (disorder) Asth ma (disorder) Active Problem 03/20/2017 [facility] Problem Active 2017-03-20 03:26:21 [facility] Migraine (disorder) Migr vick (disorder) Active Problem 03/20/2017 [facility] Problem Active 2017-03-20 03:26:21 [facility] Polycystic ovaries (disorder) Polycystic ovaries (disorder) Active Problem 03/20/2017 [facility] Problem Active 2017-03-20 03:26:21 [facility] Unspecified abdominal pain Uns pecified abdominal pain 03/17/2017 03/20/2017 [facility] 2017-03-17 05:0 0:00 2017-03-20 03:26:21 2017-03-20 03:26:21 [facility] Discharge Diagnosis: Epigastric burning sensation Discharge Diagnosis: Epigastric burning sensation 06/01/2015 06/04/2015 [facility] 2015-06-01 05:00:00 2015-06-04 04:40:22 2015-05 04:40:22 [facility] Discharge Diagnosis: Gastritis Discharge Diagnosis: Gastritis 06/01/2015 06/04/2015 [facility] Problem 2014 05:00:00 2015-06-04 04:40:22 2015-06-04 04:40:22 [facility] Diagnosis: Abdominal wall pain in both upper quadrants Discharge Diagnosis: Abdominal wall pain in both upper quadrants 06/01/2015 06/04/2015 [facility] Problem 2015-06-01 05:00:00 2014 04:40:22 2015-06-04 04:40:22 [facility] Discharge Diagnosis: Pain, abdominal, nonspecific Discharge Diagnosis: Pain, abdominal, nonspecific 05/21/2015 05/24/2015 [facility] Problem 2015-05-21 05:00:00 2015-05-24 02:14:13 2015-05 02:14:13 [facility] Discharge Diagnosis: Sinus headache Discharge Diagnosis: Sinus headache 10/23/2014 10/26/2014 [facility] Problem 2014-10-23 06:00:00 2014-10-26 05:54:41 2014-10-26 05:54:41 [facility] Discharge Diagnosis: Asthma exacerbation Discharge Diagnosis: Asthma exacerbation 10/23/2014 10/26/2014 [facility] Problem 2014-10-23 06:00:00 2014-10-26 05:54:41 2014-10-26 05:54:41 [facility] Allergies, Adverse Reactions, Alerts Allergy Name Allergy Type Status Severity Reaction(s) Onset Date Inacti ve Date Treating Clinician Comments Source Penicillins DA Active U 2019-06-20 00:00:00 [facility] Penicillins DA Active U 2019-06-15 00:00:00 [facility] Penicillins DA Active U 2019-05-23 00:00:00 [facility] Penicillins DA Active U 2019-05-18 00:00:00 [facility] Topiramate Drug Allergy Active Other (See Comments) 2015-07-20 00:00:00 Numbness, tingling [facility] Penicillins Drug Allergy Active Hives 2015-07-09 00:00:00 [facility] Penicillins DA Active U 2008-06-19 00:00:00 [facility] penicillins penicillins Active [facility] Social History Social Habit Start Date Stop Date Quantity Comments Source Sex Assigned At [facility] Social History 2015-05-21 10:44:59 2015-05-21 10:44:59 [facility] Smoking Status Start Date Stop Date Source Never smoker [facility] Medications Ordered Medication Name Filled Medication Name Start Date Stop Da te Current Medication? Ordering Clinician Indication Dosage Frequency Signature (SIG) Comments Components Source Ondansetron 4 MG Disintegrating Tablet [Zofran] 2017-03-17 08:09 :00 Yes 4 mg = 1 tab, PO, BID, PRN N ausea and Vomiting, Dissolve tab under tongue, X 5 day, # 10 tab, 0 Refill(s) [facility] tramadol hydrochloride 50 MG Oral Tablet 2017-03-17 08:06:00 Yes 50 mg = 1 tab, PO, BID, X 15 day, # 30 tab, 0 Refill(s) [facility] Zofran 2017-03-17 05:11:00 No 4 mg, Route: IVP, Drug form: INJ, ONCE, Dosing Weight 84.233, kg, Priority: STAT, Start date: 03/17/17 0:11:00 CDT, Stop date: 03/17/17 0:11:00 CDT [facility] Morphine 2017-03-17 05:11:00 No 4 mg, Route: IVP, ONCE, Dosing Weight 84.233, kg, Priority: STAT, Start date: 03/17/17 0:11:00 CDT, Stop date: 03/17/17 0:11:00 CDT [facility] ondansetron (ZOFRAN) 8 MG tablet 2017-03-12 11:54:45 Yes Take by mouth every 8 (eight) hours as needed for Nausea. [facility] HYDROcodone-acetaminophen (LORCET-HD) 5-500 mg per capsule 2017-03-12 11:54:45 Yes 1{capsule} Take 1 ca psule by mouth every 6 (six) hours as needed for Pain. [facility] simvastatin (ZOCOR) 40 MG tablet 2017-03-12 11:46:40 Yes 40mg QD Take 40 mg by mouth nightly. [facility] gemfibrozil (LOPID) 600 MG tablet 2017-03-12 11:46:40 Yes 600mg Take 600 mg by mouth 2 (two) times daily before meals. [facility] fluticasone-salmeterol (ADVAIR) 500-50 mcg/dose diskus inhal er 2015-07-09 14:05:11 Yes 1{puff} Q.5D Inhale 1 p uff by mouth via inhaler 2 (two) times daily. [facility] omeprazole (PRILOSEC) 40 MG capsule 2015-07-09 14:05:11 Yes 40mg QD Take 40 mg by mouth daily. [facility] ergocalciferol (VITAMIN D2) 50,000 unit capsule 2015-07-09 14:05 :11 Yes [id number] Q7D Take 50,000 Units by mouth once a week. [facility] albuterol HFA (VENTOLIN HFA) 90 mcg/actuation inhaler 2015-07-09 14:05:11 Yes 1{puff} Inhale 1 puff b y mouth via inhaler every 6 (six) hours as needed for Wheezing. [facility] Metoclopramide 10 MG Oral Tablet [Reglan] 2015-06-01 11:01:00 Yes 10 mg, PO, Q6H, PRN nausea/vomiting, # 20 tab, 0 Refill(s) [facility] Dicyclomine Hydrochloride 20 MG Oral Tablet [Bentyl] 2 11:01:00 Yes 20 mg = 1 tab, PO, QID, # 20 tab, 0 Refi ll(s) [facility] Sucralfate 100 MG/ML Oral Suspension 2015-06-01 11:01:00 Ye s 1 gm = 10 ml, PO, Before Meals & Bedtime, # 240 ml, 0 Refill(s) [facility] GI cocktail 2015-06-01 09:50:00 No Notes: G.I. Cocktail = antacid with simethicone 22.5 mL - lidocaine viscous 7.5 mL [facility] Ketorolac 2015-06-01 09:50:00 No 4 days MEDICATION WASTE Product Size: 30 mg Product Wasted: ___ mg [facility] pantoprazole 2015-06-01 08:12:00 No 40 mg, Route: IVP, ONCE, Dosing Weight 79.545, kg, For IV push reconstitute with 10 ml 0.9% sodium chloride and push over at least 3 minutes, Priority: STAT, Start date: 06/01/15 3:12:00, Stop date: 06/01/15 3:12:00 [facility] Metoclopramide 2015-06-01 08:12:00 No 10 mg, Route: IVP, Drug form: INJ, ONCE, Dosing Weight 79.545, kg, Priority: STAT, Start date: 06/01/15 3:12:00, Stop date: 06/01/15 3:12:00 [facility] Saline Flush 0.9% 2015-06-01 08:12:00 No Notes: (Same as: BD Posiflush) [facility] Dicyclomine 2015-06-01 08:12:00 No 20 mg, Route: IM, ONCE, Dosing Weight 79.659, kg, Priority: STAT, Start date: 06/01/15 3:12:00, Stop date: 06/01/15 3:12:00 [facility] Ondansetron 8 MG Disintegrating Tablet [Zofran] 2015-05-21 11:57 :00 Yes Special Instructions: Dissolve tab under tongue [facility] tramadol hydrochloride 50 MG Oral Tablet 2015-05-21 11:57:00 Yes 50 mg = 1 tab, PO, Q6H, PRN as needed for pain, # 12 tab, 0 Refill(s) [facility] Sucralfate 100 MG/ML Oral Suspension 2015-05-21 11:56:00 Ye s 1 gm = 10 ml, PO, BID, PRN ABDOMINAL PAIN, # 100 mL, 0 Refill(s) [facility] Omeprazole 20 MG Enteric Coated Capsule [Prilosec] 2015-05 11:56:00 Yes 20 mg = 1 cap, PO, Daily, # 14 cap, 0 Re fill(s) [facility] GI cocktail 2015-05-21 10:41:00 No Notes: G.I. Cocktail = antacid with simethicone 22.5 mL - lidocaine viscous 7.5 mL [facility] Morphine 2015-05-21 10:41:00 No Not es: (Same as: MORPhine Sulfate) [facility] Protonix 2015-05-21 10:41:00 No Notes: For IV push reconstitute with 10 ml 0.9% sodium chloride and push over 2 minutes. (Same as: Protonix) Johnathan Story Zofrlouie 2015-05-21 10:41:00 No Notes: (Same as: Reji) MEDICATION WASTE Product Size: 4 mg Product Wasted: ___ mg John[facility] Story Sodium Chloride 0.154 MEQ/ML Injectable Solution 2015-05-21 10:4 0:00 No 1,000 mL, 1,000 ml/hr, Infus e Over: 1 hr, Route: IV, 1,000, Drug form: INJ, ONCE, Priority: STAT, Dosing Weight 66.818 kg, Start date: 05/21/15 5:40:00, Duration: 1 doses or times, Stop date: 05/21/15 5:40:00 [facility] Story albuterol CFC free 90 mcg/inh inhalation aerosol with adapte r 2014-10-23 21:16:00 Yes 2 puff, IN HALATION, Q4H, for wheezing, # 9 gm, 0 Refill(s) John[facility] Story Sodium Chloride 0.111 MEQ/ML Nasal [employer] [[employer]ckay brand of sod ium chloride] 2014-10-23 21:15:00 Yes 2 spray, NASAL, QI D, # 1 btl, 0 Refill(s) John[facility] Story predniSONE 20 mg oral tablet 2014-10-23 21:14:00 Yes 40 mg = 2 tab, PO, Daily, # 8 tab, 0 Refill(s) Johnathan Story 24 HR Pseudoephedrine Hydrochloride 240 MG Extended Release Tablet [Sudafed] 2014-10-23 21:13:00 Yes 240 mg = 1 tab, PO, Daily, for congestion, # 5 tab, 0 Refill(s) John[facility] Story ibuprofen 600 mg oral tablet 2014-10-23 21:10:00 Yes Special Instructions: Take with food Johnathan oneil Ibuprofen 2014-10-23 21:04:00 No Notes: (Same as: [place]) "Do Not Crush" Give with food. Johnathan Story Tylenol 2014-10-23 21:00:00 No Notes: Do not exceed 4 gm/day. (Same as: Tylenol) Johnathan Story Vital Signs Vital Name Observation Time Observation Value Comments Source Heart Rate 2017-03-17 08:10:00 [facility] Story Systolic (mm Hg) 2017-03-17 08:10:00 [facility] Diastolic (mm Hg) 2017-03-17 08:10:00 [facility] Respitory Rate 2017-03-17 08:10:00 [facility] Temperature Oral (F) 2017-03-17 08:10:00 98.2 F [facility] Heart Rate 2017-03-17 06:10:00 [facility] Systolic (mm Hg) 2017-03-17 06:10:00 [facility] Diastolic (mm Hg) 2017-03-17 06:10:00 [facility] Respitory Rate 2017-03-17 06:10:00 [facility] Heart Rate 2017-03-17 05:10:00 [facility] Respitory Rate 2017-03-17 05:10:00 [facility] Systolic (mm Hg) 2017-03-17 05:10:00 [facility] Diastolic (mm Hg) 2017-03-17 05:10:00 [facility] Weight 2017-03-17 02:45:00 [facility] BMI Calculated 2017-03-17 02:45:00 [facility] Height 2017-03-17 02:45:00 154.94 cm [facility] Temperature Oral (F) 2017-03-17 02:45:00 98.5 F [facility] Heart Rate 2015-06-01 11:00:00 [facility] Systolic (mm Hg) 2015-06-01 11:00:00 [facility] Diastolic (mm Hg) 2015-06-01 11:00:00 [facility] Respitory Rate 2015-06-01 11:00:00 [facility] Temperature Oral (F) 2015-06-01 11:00:00 97.8 F [facility] Weight 2015-06-01 08:00:00 [facility] Respitory Rate 2015-06-01 08:00:00 [facility] BMI Calculated 2015-06-01 08:00:00 [facility] Temperature Oral (F) 2015-06-01 08:00:00 99.2 F [facility] Heart Rate 2015-06-01 08:00:00 [facility] Systolic (mm Hg) 2015-06-01 08:00:00 [facility] Diastolic (mm Hg) 2015-06-01 08:00:00 [facility] Height 2015-06-01 08:00:00 154.94 cm [facility] Temperature Oral (F) 2015-05-21 12:17:00 98.1 F [facility] Respitory Rate 2015-05-21 12:17:00 [facility] Systolic (mm Hg) 2015-05-21 12:17:00 [facility] Diastolic (mm Hg) 2015-05-21 12:17:00 [facility] Heart Rate 2015-05-21 12:17:00 [facility] Weight 2015-05-21 10:38:00 [facility] BMI Calculated 2015-05-21 10:38:00 [facility] Height 2015-05-21 10:38:00 154.94 cm [facility] Temperature Oral (F) 2015-05-21 10:38:00 98.2 F [facility] Systolic (mm Hg) 2015-05-21 10:38:00 [facility] Diastolic (mm Hg) 2015-05-21 10:38:00 [facility] Heart Rate 2015-05-21 10:38:00 [facility] Respitory Rate 2015-05-21 10:38:00 [facility] Heart Rate 2014-10-23 21:43:00 [facility] Respitory Rate 2014-10-23 21:43:00 [facility] Diastolic (mm Hg) 2014-10-23 21:43:00 [facility] Systolic (mm Hg) 2014-10-23 21:43:00 [facility] BMI Calculated 2014-10-23 20:39:00 [facility] Weight 2014-10-23 20:39:00 [facility] Height 2014-10-23 20:39:00 154.94 cm [facility] Temperature Oral (F) 2014-10-23 20:39:00 98.6 F [facility] Heart Rate 2014-10-23 20:39:00 [facility] Diastolic (mm Hg) 2014-10-23 20:39:00 [facility] Respitory Rate 2014-10-23 20:39:00 [facility] Systolic (mm Hg) 2014-10-23 20:39:00 [facility] Procedures This patient has no known procedures. Encounters Start Date/Time End Date/Time Encounter Type Admission Type [facility] Care Department Encounter ID Source 2017-03-16 21:35:00 2017-03-17 03:34:00 Outpatient Indrejit Sheehan [facility] [id number] 2015-06-01 02:49:00 2015-06-01 06:21:00 Outpatient Iftikhar Plunkett [facility] [id number] 2015-05-21 05:27:00 2015-05-21 07:31:00 Outpatient EmiAlex robb [facility] [id number] 2014-10-23 14:23:00 2014-10-23 15:52:00 Outpatient Dung Mirella Edgard [facility] [id number] Results Test Description Test Time Test Comments Results Result Comments Source CORD ARTERIAL BLOOD GASES 2019-06-27 11:54:00 Test Item CORD BLOOD PH (test code = PH/C) 7.33 7.20-7.30 H CORD BLOOD PCO2 (test code = PCO2/C) 34 MMHG 45-50 L CORD BLOOD PO2 (test code = PO2/C) 36 mmHg 15-25 H CORD BLOOD HCO3 (test code = HCO3/C) 18 mmol/L 15-25 N BASE EXCESS CORD (test code = ASHLEY/C) -8.0 mmol/L -5-5 L O2 SATURATION (test code = O2S/C) 66 % 25-45 H URINALYSIS [id number] 23:05:00* Test Item Value Reference Range Interpretation Comments UA COLOR (test code = COLU) YELLOW YEL/STRAW UA APPEARANCE (test code = APPU) CLOUDY CLEAR A UA GLUCOSE DIPSTICK (test code = DGLUU) NEGATIVE NEGATIVE UA BILIRUBIN DIPSTICK (test code = BILU) NEGATIVE NEGATIVE UA KETONE DIPSTICK (test code = KETU) NEGATIVE NEGATIVE UA SPECIFIC GRAVITY (test code = SGU) 1.017 1.005-1.030 N UA BLOOD DIPSTICK (test code = CYNTHIA) 3+ NEGATIVE A UA PH DIPSTICK (test code = ARTHUR) 5.0 5.0-7.0 N UA PROTEIN DIPSTICK (test code = PROU) 1+ NEGATIVE A UA UROBILINIOGEN DIPSTICK (test code = URO) 0.2 mg/dL 0.2-1.0 UA NITRITE DIPSTICK (test code = WALTER) NEGATIVE NEGATIVE UA LEUKOCYTE ESTERASE DIPSTICK (test code = LEUU) 3+ NEGA TIVE A UA WBC (test code = WBCU) >50 WBC/HPF 0-3 A UA RBC (test code = RBCU) >50 RBC/HPF 0-3 A UA BACTERIA (test code = BACU) 1+ /HPF NONE SEEN A UA SQUAMOUS CELLS (test code = SQU) 6-10 /HPF NONE SEEN A UA MUCUS (test code = MUCU) 2+ /LPF NONE SEEN A COMMENTS: Clean CatchPROCALCITONIN (PCT)2019-06-20 22:27:00* Test Item Value Reference Range Interpretation Comments PROCALCITONIN (PCT) (test code = PROCAL) < 0.05 ng/mL 0.00-0.05 N PROCALCITONIN (PCT) NORMAL RANGE (ADULT): <0.05 NG/ML. * a concentration <0.5 ng/mL represents a low risk of severe sepsis and/or septic shock.* a concentration >2 ng/mL represents a high risk of severe sepsis and/or septic shock.Nevertheless, concentrations <0.5 ng/mL do not exclude aninfection, on account of localized infections (withoutsystemic signs) which can be associated with such lowconcentrations, or a systemic infection in its initialstages (< 6 hours). Furthermore, increased procalcitonincan occur without infection. PCT concentrations between 0.5and 2.0 ng/mL should be interpreted taking into account thepatient's history. It is recommended to retest PCT within6-24 hours if any concentrations <2 ng/mL are obtained. CBC W/AUTO [id number] 22:18:00* Test Item Value Reference Range Interpretation Comments WHITE BLOOD CELL (test code = WBC) 9.93 x10 3/uL 4.5-11.0 N RED BLOOD CELL (test code = RBC) 3.60 x10 6/uL 3.54-5.02 N HEMOGLOBIN (test code = HGB) 10.3 g/dL 11.0-15.0 L HEMATOCRIT (test code = HCT) 31.3 % 33.0-45.0 L MEAN CELL VOLUME (test code = MCV) 86.9 fL 81.0-99.0 N MEAN CELL HGB (test code = MCH) 28.6 pg 27.0-33.0 N MEAN CELL HGB CONCETRATION (test code = MCHC) 32.9 g/dL 33.0-37. 0 L RED CELL DISTRIBUTION WIDTH CV (test code = RDW) 15.0 % 11.5- 14.5 H RED CELL DISTRIBUTION WIDTH SD (test code = RDW-SD) 47.7 fL 37 .0-54.0 N PLATELET COUNT (test code = PLT) 334 x10 3/uL 150-400 N MEAN PLATELET VOLUME (test code = MPV) 10.1 fL 7.0-9.0 H MANUAL DIFF REQUIRED (test code = MDIFF) YES WBC [id number] 22:18:00* Test Item Value Reference Range Interpretation Comments SEGMENTED NEUTROPHILS (test code = SEG) 62.4 % 37-69 N LYMPHOCYTE (test code = LYMPH) 27.5 % 23-55 N MONOCYTE (test code = MON) 1.8 % 0-10 N EOSINOPHIL (test code = EOS) 3.7 % 0.0-4.0 N METAMYELOCYTE (test code = META) 0.9 % 0.0-0.0 H MYELOCYTE (test code = MYELO) 3.7 % 0.0-0.0 H POLYCHROMASIA (test code = POLC) 2+ ANISOCYTOSIS (test code = ANISO) 1+ MICROCYTOSIS (test code = MICR) 1+ PLATELET ESTIMATE (test code = PLTEST) Adequate THOUSAND ADEQUATE COMPREHENSIVE METABOLIC [id number] 22:13:00* Test Item Value Reference Range Interpretation Comments SODIUM (test code = NA) 143 mEq/L 134-147 N POTASSIUM (test code = K) 3.7 mEq/L 3.4-5.0 N CHLORIDE (test code = CL) 106 mEq/L 100-108 N CARBON DIOXIDE (test code = CO2) 25 mEq/L 21-33 N ANION GAP (test code = GAP) 16 0-20 N GLUCOSE (test code = GLU) 93 mg/dL 70-110 N BLOOD UREA NITROGEN (test code = BUN) 8 mg/dL 7-18 N GLOMERULAR FILTRATION RATE (test code = GFR) 114.4 105-110 H Units of measure = ml/min/1.73 m2 CREATININE (test code = CREAT) 0.6 mg/dL 0.6-1.3 N TOTAL PROTEIN (test code = PROT) 7.2 g/dL 6.4-8.2 N ALBUMIN (test code = ALB) 2.70 g/dL 3.4-5.0 L CALCIUM (test code = CA) 8.8 mg/dL 8.0-10.5 N BILIRUBIN TOTAL (test code = BILT) 0.30 mg/dL 0.0-1.0 N SGOT/AST (test code = AST) 25 IUnit/L 15-37 N SGPT/ALT (test code = ALT) 26 IUnit/L 15-65 N ALKALINE PHOSPHATASE TOTAL (test code = ALKP) 78 IUnit/L 20-125 N CBC W/AUTO [id number] 22:13:00* Test Item Value Reference Range Interpretation Comments WHITE BLOOD CELL (test code = WBC) 9.93 x10 3/uL 4.5-11.0 N RED BLOOD CELL (test code = RBC) 3.60 x10 6/uL 3.54-5.02 N HEMOGLOBIN (test code = HGB) 10.3 g/dL 11.0-15.0 L HEMATOCRIT (test code = HCT) 31.3 % 33.0-45.0 L MEAN CELL VOLUME (test code = MCV) 86.9 fL 81.0-99.0 N MEAN CELL HGB (test code = MCH) 28.6 pg 27.0-33.0 N MEAN CELL HGB CONCETRATION (test code = MCHC) 32.9 g/dL 33.0-37. 0 L RED CELL DISTRIBUTION WIDTH CV (test code = RDW) 15.0 % 11.5- 14.5 H RED CELL DISTRIBUTION WIDTH SD (test code = RDW-SD) 47.7 fL 37 .0-54.0 N PLATELET COUNT (test code = PLT) 334 x10 3/uL 150-400 N MEAN PLATELET VOLUME (test code = MPV) 10.1 fL 7.0-9.0 H MANUAL DIFF REQUIRED (test code = MDIFF) YES WBC [id number] 22:13:00* Test Item Value Reference Range Interpretation Comments ANISOCYTOSIS (test code = ANISO) PLATELET ESTIMATE (test code = PLTEST) THOUSAND ADEQUATE CBC W/AUTO [id number] 22:13:00* Test Item Value Reference Range Interpretation Comments WHITE BLOOD CELL (test code = WBC) 9.93 x10 3/uL 4.5-11.0 N RED BLOOD CELL (test code = RBC) 3.60 x10 6/uL 3.54-5.02 N HEMOGLOBIN (test code = HGB) 10.3 g/dL 11.0-15.0 L HEMATOCRIT (test code = HCT) 31.3 % 33.0-45.0 L MEAN CELL VOLUME (test code = MCV) 86.9 fL 81.0-99.0 N MEAN CELL HGB (test code = MCH) 28.6 pg 27.0-33.0 N MEAN CELL HGB CONCETRATION (test code = MCHC) 32.9 g/dL 33.0-37. 0 L RED CELL DISTRIBUTION WIDTH CV (test code = RDW) 15.0 % 11.5- 14.5 H RED CELL DISTRIBUTION WIDTH SD (test code = RDW-SD) 47.7 fL 37 .0-54.0 N PLATELET COUNT (test code = PLT) 334 x10 3/uL 150-400 N MEAN PLATELET VOLUME (test code = MPV) 10.1 fL 7.0-9.0 H MANUAL DIFF REQUIRED (test code = MDIFF) YES WBC [id number] 22:13:00* Test Item Value Reference Range Interpretation Comments ANISOCYTOSIS (test code = ANISO) PLATELET ESTIMATE (test code = PLTEST) THOUSAND ADEQUATE COMPREHENSIVE METABOLIC [id number] 22:09:00* Test Item Value Reference Range Interpretation Comments SODIUM (test code = NA) 143 mEq/L 134-147 N POTASSIUM (test code = K) 3.7 mEq/L 3.4-5.0 N CHLORIDE (test code = CL) 106 mEq/L 100-108 N CARBON DIOXIDE (test code = CO2) 25 mEq/L 21-33 N ANION GAP (test code = GAP) 16 0-20 N GLUCOSE (test code = GLU) 93 mg/dL 70-110 N BLOOD UREA NITROGEN (test code = BUN) 8 mg/dL 7-18 N GLOMERULAR FILTRATION RATE (test code = GFR) 114.4 105-110 H Units of measure = ml/min/1.73 m2 CREATININE (test code = CREAT) 0.6 mg/dL 0.6-1.3 N TOTAL PROTEIN (test code = PROT) g/dL 6.4-8.2 ALBUMIN (test code = ALB) 2.70 g/dL 3.4-5.0 L CALCIUM (test code = CA) 8.8 mg/dL 8.0-10.5 N BILIRUBIN TOTAL (test code = BILT) mg/dL 0.0-1.0 SGOT/AST (test code = AST) 25 IUnit/L 15-37 N SGPT/ALT (test code = ALT) 26 IUnit/L 15-65 N ALKALINE PHOSPHATASE TOTAL (test code = ALKP) IUnit/L 20-125 LACTIC ACID [id number] 21:57:00* Test Item Value Reference Range Interpretation Comments LACTIC ACID POC (test code = LACTP) 1.1 MMOL/L 0.90-1.70 N Performed by certified looping machine operator at [facility] CBC W/AUTO [id number] 21:54:00* Test Item Value Reference Range Interpretation Comments WHITE BLOOD CELL (test code = WBC) 9.93 x10 3/uL 4.5-11.0 N RED BLOOD CELL (test code = RBC) 3.60 x10 6/uL 3.54-5.02 N HEMOGLOBIN (test code = HGB) 10.3 g/dL 11.0-15.0 L HEMATOCRIT (test code = HCT) 31.3 % 33.0-45.0 L MEAN CELL VOLUME (test code = MCV) 86.9 fL 81.0-99.0 N MEAN CELL HGB (test code = MCH) 28.6 pg 27.0-33.0 N MEAN CELL HGB CONCETRATION (test code = MCHC) 32.9 g/dL 33.0-37. 0 L RED CELL DISTRIBUTION WIDTH CV (test code = RDW) 15.0 % 11.5- 14.5 H RED CELL DISTRIBUTION WIDTH SD (test code = RDW-SD) 47.7 fL 37 .0-54.0 N PLATELET COUNT (test code = PLT) 334 x10 3/uL 150-400 N MEAN PLATELET VOLUME (test code = MPV) 10.1 fL 7.0-9.0 H LYMPHOCYTE % (test code = LY%) % 14.0-32.0 MANUAL DIFF REQUIRED (test code = MDIFF) - DUP AB/PEL/SC/[id number] 21:10:00 Name: A[facility]AS [facility] RushingGreenwood : 1985 Age/S: 34 / F [address] [place] [address] Unit #: [id number] Loc: [facility] Dodd [id number] Phys: Todd Ramos MD Acct: [id number] Dis Date: Status: REG ER PHONE #: [phone] Exam Date: 06/20/20192056 FAX #: [phone] Reason: FEVER EXAMS: CPT CODE: [id number] DUP AB/PEL/SC/LTD [id number] PROCEDURE: PELVIC ULTRASOUND INDICATION: Pelvic pain with fever after long vaginal delivery. Evaluate for endometritis. Hypertension. COMPARISON: None. TRANSABDOMINAL SCAN: Expected enlarged uterus measuring 16.6 x 6.4 x 10.2 cm with heterogeneous endometrial stripe measuring 1.4 cm thickness. No vascularity of the endometrium appreciated with color Doppler. Right ovary appears normal measuring 3.8 x 1.8 x 1.5 cm with arterial waveforms documented. Left ovary appears normal measuring 2.7 x 2.1 x 1.8 cm with arterial waveforms documented. No adnexal mass is seen. No free pelvic fluid. TRANSVAGINAL SCAN: Not performed. IMPRESSION: Heterogeneous, slightly thickened endometrial stripe. No endometrial hypervascularity to suggest endometritis. SL: SG-H at 2110 Reported and signed by: Isauro Vizcarra M.D. CC: Todd Ramos MD; Jae Bolaños MD Technologist: Paloma Mix RDMS(A)(OB) Trnscb Date/Time: 06/20/2019 (2109) [email or web address] Orig Print D/T: S: 06/20/2019 (2112) Probe: PAGE 1 Signed Report - US PELVIS [id number] 21:10:00 Name: ASHA CHICAS : 1985 Age/S: 34 / F [address] [place] [address] Unit #: [id number] Loc: [facility] [id number] Phys: Melanie Ramos MD Acct: [id number] Di s Date: Status: REG ER PHONE #: [phone] Exam Date: 06/20/20192056 FAX #: Reason: pain and fever after long vag delivery EXAMS: CPT CODE: [id number] US PELVIS COM PLETE 09206 PROCEDURE: PELVIC ULTRASO UND INDICATION: Pelvic pain with fever after long vaginal delivery . Evaluate for endometritis. Hypertension. COMPARISON: Non e. TRANSABDOMINAL SCAN: Expected enlarged uterus measur ing 16.6 x 6.4 x 10.2 cm with heterogeneous endometrial stripe measuring 1.4 cm thickness. No vascularity of the endometrium appreciated with color Doppler. Right ovary appears normal measuring 3.8 x 1.8 x 1.5 cm w ith arterial waveforms documented. Left ovary appears normal measuring 2. 7 x 2.1 x 1.8 cm with arterial waveforms documented. No adnexal mass is s een. No free pelvic fluid. TRANSVAGINAL SCAN: Not performed. IMPRESSION: Heterogeneous, slightly thickened endometrial stripe. No endometrial hypervascularity to suggest endometritis. SL: SG-H at 0 Reported and signed by: Isauro Vizcarra M.D. CC: Todd Ramos MD; Jae Bolaños MD Technologist: Paloma Mix RDMS(A)(OB) Trnscb Date/Time: 019 (2109) [email or web address] Orig Print D/T: S: 06/20/2019 (2112) Probe: PAGE 1 Signed Report CBC W/AUTO [id number] 07:50:00* Test Item Value Reference Range Interpretation Comments WHITE BLOOD CELL (test code = WBC) 11.87 x10 3/uL 4.5-11.0 H RED BLOOD CELL (test code = RBC) 3.25 x10 6/uL 3.54-5.02 L HEMOGLOBIN (test code = HGB) 9.2 g/dL 11.0-15.0 L HEMATOCRIT (test code = HCT) 28.8 % 33.0-45.0 L MEAN CELL VOLUME (test code = MCV) 88.6 fL 81.0-99.0 N MEAN CELL HGB (test code = MCH) 28.3 pg 27.0-33.0 N MEAN CELL HGB CONCETRATION (test code = MCHC) 31.9 g/dL 33.0-37. 0 L RED CELL DISTRIBUTION WIDTH CV (test code = RDW) 15.5 % 11.5- 14.5 H RED CELL DISTRIBUTION WIDTH SD (test code = RDW-SD) 50.0 fL 37 .0-54.0 N PLATELET COUNT (test code = PLT) 184 x10 3/uL 150-400 N MEAN PLATELET VOLUME (test code = MPV) 12.0 fL 7.0-9.0 H NEUTROPHIL % (test code = NT%) 68.5 % 56.0-77.0 N IMMATURE GRANULOCYTE % (test code = IG%) 3.5 % 0.0-2.0 H LYMPHOCYTE % (test code = LY%) 19.0 % 14.0-32.0 N MONOCYTE % (test code = MO%) 8.1 % 4.8-9.0 N EOSINOPHIL % (test code = EO%) 0.6 % 0.3-3.7 N BASOPHIL % (test code = BA%) 0.3 % 0.0-2.0 N NUCLEATED RBC % (test code = NRBC%) 0.0 % 0-0 N NEUTROPHIL # (test code = NT#) 8.14 x10 3/uL 2.0-7.6 H IMMATURE GRANULOCYTE # (test code = IG#) 0.42 x10 3/uL 0.00-0.03 H LYMPHOCYTE # (test code = LY#) 2.25 x10 3/uL 1.0-3.8 N MONOCYTE # (test code = MO#) 0.96 x10 3/uL 0.1-0.8 H EOSINOPHIL # (test code = EO#) 0.07 x10 3/uL 0.0-0.2 N BASOPHIL # (test code = BA#) 0.03 x10 3/uL 0.0-0.2 N NUCLEATED RBC # (test code = NRBC#) 0.00 x10 3/uL 0.0-0.1 N MANUAL DIFF REQUIRED (test code = MDIFF) NO RAPID PLASMA [id number] 11:30:00* Test Item Value Reference Range Interpretation Comments RAPID PLASMA REAGIN (test code = RPR) NONREACTIVE NONREACTIVE AG HEPATITIS B [id number] 11:30:00* Test Item Value Reference Range Interpretation Comments AG HEPATITIS B SURFACE (test code = HBSAG) NON REACTIVE INDEX NonRe active AB HIV 1 11:30:00* Test Item Value Reference Range Interpretation Comments AB HIV 1 2 (test code = AZQ00SB) NONREACTIVE INDEX NONREACTIVE RAPID PLASMA [id number] 14:50:00* Test Item Value Reference Range Interpretation Comments RAPID PLASMA REAGIN (test code = RPR) NONREACTIVE AG HEPATITIS B [id number] 14:50:00* Test Item Value Reference Range Interpretation Comments AG HEPATITIS B SURFACE (test code = HBSAG) NON REACTIVE INDEX NonRe active AB HIV 1 14:50:00* Test Item Value Reference Range Interpretation Comments AB HIV 1 2 (test code = [id number]) NONREACTIVE INDEX NONREACTIVE CBC W/AUTO [id number] 13:43:00* Test Item Value Reference Range Interpretation Comments WHITE BLOOD CELL (test code = WBC) 9.06 x10 3/uL 4.5-11.0 N RED BLOOD CELL (test code = RBC) 4.00 x10 6/uL 3.54-5.02 N HEMOGLOBIN (test code = HGB) 11.3 g/dL 11.0-15.0 N HEMATOCRIT (test code = HCT) 35.1 % 33.0-45.0 N MEAN CELL VOLUME (test code = MCV) 87.8 fL 81.0-99.0 N MEAN CELL HGB (test code = MCH) 28.3 pg 27.0-33.0 N MEAN CELL HGB CONCETRATION (test code = MCHC) 32.2 g/dL 33.0-37. 0 L RED CELL DISTRIBUTION WIDTH CV (test code = RDW) 15.7 % 11.5- 14.5 H RED CELL DISTRIBUTION WIDTH SD (test code = RDW-SD) 49.2 fL 37 .0-54.0 N PLATELET COUNT (test code = PLT) 230 x10 3/uL 150-400 N MEAN PLATELET VOLUME (test code = MPV) 11.9 fL 7.0-9.0 H MANUAL DIFF REQUIRED (test code = MDIFF) YES WBC [id number] 13:43:00* Test Item Value Reference Range Interpretation Comments SEGMENTED NEUTROPHILS (test code = SEG) 60.0 % 37-69 N LYMPHOCYTE (test code = LYMPH) 26.4 % 23-55 N MONOCYTE (test code = MON) 8.2 % 0-10 N MYELOCYTE (test code = MYELO) 5.4 % 0.0-0.0 H ANISOCYTOSIS (test code = ANISO) NORMAL PLATELET ESTIMATE (test code = PLTEST) Adequate THOUSAND ADEQUATE CBC W/AUTO [id number] 13:41:00* Test Item Value Reference Range Interpretation Comments WHITE BLOOD CELL (test code = WBC) 9.06 x10 3/uL 4.5-11.0 N RED BLOOD CELL (test code = RBC) 4.00 x10 6/uL 3.54-5.02 N HEMOGLOBIN (test code = HGB) 11.3 g/dL 11.0-15.0 N HEMATOCRIT (test code = HCT) 35.1 % 33.0-45.0 N MEAN CELL VOLUME (test code = MCV) 87.8 fL 81.0-99.0 N MEAN CELL HGB (test code = MCH) 28.3 pg 27.0-33.0 N MEAN CELL HGB CONCETRATION (test code = MCHC) 32.2 g/dL 33.0-37. 0 L RED CELL DISTRIBUTION WIDTH CV (test code = RDW) 15.7 % 11.5- 14.5 H RED CELL DISTRIBUTION WIDTH SD (test code = RDW-SD) 49.2 fL 37 .0-54.0 N PLATELET COUNT (test code = PLT) 230 x10 3/uL 150-400 N MEAN PLATELET VOLUME (test code = MPV) 11.9 fL 7.0-9.0 H MANUAL DIFF REQUIRED (test code = MDIFF) YES WBC [id number] 13:41:00* Test Item Value Reference Range Interpretation Comments ANISOCYTOSIS (test code = ANISO) PLATELET ESTIMATE (test code = PLTEST) THOUSAND ADEQUATE CBC W/AUTO [id number] 13:41:00* Test Item Value Reference Range Interpretation Comments WHITE BLOOD CELL (test code = WBC) 9.06 x10 3/uL 4.5-11.0 N RED BLOOD CELL (test code = RBC) 4.00 x10 6/uL 3.54-5.02 N HEMOGLOBIN (test code = HGB) 11.3 g/dL 11.0-15.0 N HEMATOCRIT (test code = HCT) 35.1 % 33.0-45.0 N MEAN CELL VOLUME (test code = MCV) 87.8 fL 81.0-99.0 N MEAN CELL HGB (test code = MCH) 28.3 pg 27.0-33.0 N MEAN CELL HGB CONCETRATION (test code = MCHC) 32.2 g/dL 33.0-37. 0 L RED CELL DISTRIBUTION WIDTH CV (test code = RDW) 15.7 % 11.5- 14.5 H RED CELL DISTRIBUTION WIDTH SD (test code = RDW-SD) 49.2 fL 37 .0-54.0 N PLATELET COUNT (test code = PLT) 230 x10 3/uL 150-400 N MEAN PLATELET VOLUME (test code = MPV) 11.9 fL 7.0-9.0 H MANUAL DIFF REQUIRED (test code = MDIFF) YES WBC [id number] 13:41:00* Test Item Value Reference Range Interpretation Comments ANISOCYTOSIS (test code = ANISO) PLATELET ESTIMATE (test code = PLTEST) THOUSAND ADEQUATE RAPID PLASMA [id number] 12:42:00* Test Item Value Reference Range Interpretation Comments RAPID PLASMA REAGIN (test code = RPR) NONREACTIVE AG HEPATITIS B [id number] 12:42:00* Test Item Value Reference Range Interpretation Comments AG HEPATITIS B SURFACE (test code = HBSAG) NON REACTIVE INDEX NonRe active AB HIV 1 12:42:00* Test Item Value Reference Range Interpretation Comments AB HIV 1 2 (test code = OTY18PA) INDEX NONREACTIVE CBC W/AUTO [id number] 12:08:00* Test Item Value Reference Range Interpretation Comments WHITE BLOOD CELL (test code = WBC) 9.06 x10 3/uL 4.5-11.0 N RED BLOOD CELL (test code = RBC) 4.00 x10 6/uL 3.54-5.02 N HEMOGLOBIN (test code = HGB) 11.3 g/dL 11.0-15.0 N HEMATOCRIT (test code = HCT) 35.1 % 33.0-45.0 N MEAN CELL VOLUME (test code = MCV) 87.8 fL 81.0-99.0 N MEAN CELL HGB (test code = MCH) 28.3 pg 27.0-33.0 N MEAN CELL HGB CONCETRATION (test code = MCHC) 32.2 g/dL 33.0-37. 0 L RED CELL DISTRIBUTION WIDTH CV (test code = RDW) 15.7 % 11.5- 14.5 H RED CELL DISTRIBUTION WIDTH SD (test code = RDW-SD) 49.2 fL 37 .0-54.0 N PLATELET COUNT (test code = PLT) 230 x10 3/uL 150-400 N MEAN PLATELET VOLUME (test code = MPV) 11.9 fL 7.0-9.0 H LYMPHOCYTE % (test code = LY%) % 14.0-32.0 MANUAL DIFF REQUIRED (test code = MDIFF) URINALYSIS [id number] 15:21:00* Test Item Value Reference Range Interpretation Comments UA COLOR (test code = COLU) YELLOW YEL/STRAW UA APPEARANCE (test code = APPU) SL CLOUDY CLEAR UA GLUCOSE DIPSTICK (test code = DGLUU) NEGATIVE NEGATIVE UA BILIRUBIN DIPSTICK (test code = BILU) NEGATIVE NEGATIVE UA KETONE DIPSTICK (test code = KETU) 1+ NEGATIVE A UA SPECIFIC GRAVITY (test code = SGU) 1.012 1.005-1.030 N UA BLOOD DIPSTICK (test code = CYNTHIA) NEGATIVE NEGATIVE UA PH DIPSTICK (test code = ARTHUR) 7.0 5.0-7.0 N UA PROTEIN DIPSTICK (test code = PROU) NEGATIVE NEGATIVE UA UROBILINIOGEN DIPSTICK (test code = URO) 0.2 mg/dL 0.2-1.0 UA NITRITE DIPSTICK (test code = WALTER) NEGATIVE NEGATIVE UA LEUKOCYTE ESTERASE DIPSTICK (test code = LEUU) NEGATIVE NEGA TIVE UA WBC (test code = WBCU) 0-3 WBC/HPF 0-3 UA RBC (test code = RBCU) 0-3 RBC/HPF 0-3 UA BACTERIA (test code = BACU) TRACE /HPF NONE SEEN UA SQUAMOUS CELLS (test code = SQU) 0-5 /HPF NONE SEEN UA MUCUS (test code = MUCU) TRACE /LPF NONE SEEN CHEM [id number] 05:22:001.9[facility] JSISR0143-22-02 05:22:004.1 [facility] CBKXG5499-43-34 05:22:56520Ezgwgxlb HermannELECTROLYTES 2017-03-17 05:22:0013.1[facility] DvsrqjfBVNGAHBKZEPK5967-52-61 05:22:004.5 [facility] PwsfgzoPZOOQYSWRTYW8695-64-44 05:22:008[facility]annELECTROLYTES 2017-03-17 05:22:000.9[facility] SjiuydwGLHXNEXROFMF5095-90-92 05:22:0098[facility] EpssgveUCIGKHZXBTRZ6934-63-93 05:22:000.3[facility] AvxkjotBXZMLKYFOOSO0082-62-38 05:22:0071[facility] CydahhyQKTLCGQLLDVN5903-78-18 05:22:0024[facility] QYEBORWQMHJT8871-52-73 05:22:0025[facility] RkpoyrhJCYXWFRUCZDX4175-75-91 05:22:00 104[facility] HxqclatUDDNPXNHXYDI0012-30-65 05:22:004.1[facility] OIMRXLKRONWA4367-02-89 05:22:86825Gzwolosj ZnswnxlNMQEIPZSNQEO8799-96-51 05:22:009.5[facility] WygcfudKOFNXABMGERE6776-10-98 05:22:004.1[facility] TZBRMMTMPUIZ1761-36-41 05:22:0042[facility] FcvvpxmDJNFVBJHEJBW7638-22-55 05:22:00 8.6[facility] JlutcaoCBIOCUIHCIPK8629-86-48 05:22:000.80[facility] LBBEUEPZOTEP2618-23-96 05:22:006[facility] WzghvzhZJAMCJRWXWVR1837-33-39 05:22:00 104[facility] SgeejovSXFAHRAKIZHLY4129-37-64 05:22:00Negative *NA*(03/17/17 12:22 AM)[facility] GlbuybzRAGGEMTLNY8259-19-59 05:22:0034.4[facility]annHEMATOLOGY 2017-03-17 05:22:004.7[facility] LcwwyyiQHJOMTJCHI0941-38-96 05:22:003.7[facility] FnsoymwNPPKHUIBDR8663-42-97 05:22:0059.5[facility] CpgtfbyCODFVBLRAU8308-14-06 05:22:000.1[facility] JzgelhcEFCUAEHUWY0127-02-25 05:22:000.5[facility] ZOYJIHUXJP3304-01-52 05:22:006.4[facility] LxhiatoECJTTVOBUP9175-65-49 05:22:000.3 [facility] GfbkndaTNKUGWTEHQ2229-81-73 05:22:001.1[facility]annHEMATOLOGY 2017-03-17 05:22:00* Test Item Value Reference Range Interpretation Comments PTT (test code = PTT) 32.9 s 22.9-35.8 [facility] LnkkuknVJNTATFETM9044-25-11 05:22:00* Test Item Value Reference Range Interpretation Comments PT (test code = PT) 13.0 s 12.0-14.7 [facility] RfujiddZAZDIXZZGE0513-29-68 05:22:000.96[facility]annHEMATOLOGY 2017-03-17 05:22:56370Rofuyydm WwtxcwuJYGRZLKRII0697-95-74 05:22:0010.0[facility] LuopwxjGYQXFSEOEJ3499-13-78 05:22:0013.3[facility] GzqyiquOPCEHWTHIW0466-47-39 05:22:00* Test Item Value Reference Range Interpretation Comments MCH (test code = MCH) 28.1 pg 27.0-31.0 [facility] SrxpyguIOMXKSBIWN3767-23-66 05:22:0033.9[facility]annHEMATOLOGY 2017-03-17 05:22:0043.8[facility] TyaabnpAFJOCYXVQG5080-58-01 05:22:0082.7[facility] SjorrfvEUAHEBLSDX9729-01-18 05:22:0014.9[facility] EjyftvzLFUVTHBZWT2223-05-25 05:22:0010.8[facility] ElsncryAHCMCEUJLC6755-62-50 05:22:005.30[facility] URINE AND HTBNX8378-82-29 03:13:000.2[facility] SGAWD5358-38-50 03:13:00Negative (03/16/17 10:13 PM)[facility] MMXFG5864-57-63 03:13:00Negative *NA*(03/16/17 10:13 PM)[facility] YSGIQ5292-95-14 03:13:00Negative (03/16/17 10:13 PM)[facility] LIEOM7380-26-25 03:13:00Moderate *ABN*(03/16/17 10:13 PM)[facility] VAWJV9917-75-77 03:13:00<=1.005 *NA*(03/16/17 10:13 PM)[facility] UPRMS6630-91-00 03:13:00* Test Item Value Reference Range Interpretation Comments UA pH (test code = UA pH) 6.5 1 5.0-8.0 [facility] TDAWJ9453-35-30 03:13:00Negative (03/16/17 10:13 PM) [facility] FPTEV0482-24-47 03:13:00Negative (03/16/17 10:13 PM) [facility] VMKZB1946-79-39 03:13:00Negative *NA*(03/16/17 10:13 PM) [facility] PBGBU4256-89-79 03:13:00Yellow *NA*(03/16/17 10:13 PM) [facility] XLIDJ4071-53-89 03:13:00Clear (03/16/17 10:13 PM) [facility] SJIBR9049-95-66 09:56:00None Seen (06/01/15 4:56 AM) [facility] WGLHT2335-63-16 09:56:00Negative (06/01/15 4:56 AM) [facility] OHACX2436-65-06 09:56:00Negative (06/01/15 4:56 AM) [facility] QRKWQ8067-64-70 09:56:000.2[facility] YHGMJ2536-85-74 09:56:00* Test Item Value Reference Range Interpretation Comments UA Spec Grav (test code = UA Spec Grav) 1.015 1 [facility] FCWXE5121-97-74 09:56:00* Test Item Value Reference Range Interpretation Comments UA pH (test code = UA pH) 7.0 1 5.0-8.0 [facility] BITHJ8807-36-44 09:56:00Negative (06/01/15 4:56 AM) [facility] BGIRW5657-13-35 09:56:00Yellow *NA*(06/01/15 4:56 AM) [facility] ZNASG1974-55-67 09:56:00Clear (06/01/15 4:56 AM) [facility] IXMAE1857-40-14 09:56:00Negative *NA*(06/01/15 4:56 AM) [facility] ZFNDK2295-16-94 09:56:00Small *ABN*(06/01/15 4:56 AM) [facility] JAFKR4669-44-06 09:56:00Negative (06/01/15 4:56 AM) [facility] OMZZX6035-54-66 09:56:00Negative *NA*(06/01/15 4:56 AM) [facility]annCARDIAC SQFIWUE7207-78-24 08:18:00<0.02[facility]annCHEM LVBIX9586-78-06 08:18:0073[facility]annCHEM YVVRL6416-68-44 08:18:29071 [facility]CHE[facility] AWGDH2738-28-34 08:18:000.9[facility]annCHEM PANEL 2015-06-01 08:18:004.6[facility]annCHEM TVGWI3068-38-57 08:18:0011[facility]annCHE[facility] DYBGT2432-93-32 08:18:0011.7[facility]annCHEM SJGLR6417-30-14 08:18:0099[facility]annCHE[facility] PXVNN5770-44-34 08:18:008.6[facility]annCHEM VJPHV2418-32-13 08:18:0024[facility]annCHEM ODOGJ3011-37-87 08:18:20603 [facility]annCHE[facility] UAGOT9320-62-97 08:18:008.9[facility]annCHEM PANEL 2015-06-01 08:18:0028[facility]annCHEM SSVPL9853-77-68 08:18:003.7[facility]annCHEM LRFLY4016-11-18 08:18:65216Rcozgxrd HermannCHEM VTQSI7052-32-68 08:18:000.8[facility]annCHEM SYLLD8152-82-50 08:18:0072[facility]annCHE[facility] VQIYD8234-08-32 08:18:004.0[facility]annCHEM KWMNK6430-29-40 08:18:0036 [facility]annCHE[facility] OKVTD1064-81-47 08:18:98669Hflfzvzt HermannCHEM PANEL 2015-06-01 08:18:009[facility]annCHEM ZAQOY4505-18-06 08:18:000.2[facility] LmkkytdGNICPEMWITSEO7583-31-74 08:18:00Negative *NA*(06/01/15 3:18 AM)[facility] QcdkmwfQLCDSTWTWZ1155-20-11 08:18:00* Test Item Value Reference Range Interpretation Comments MCH (test code = MCH) 28.5 pg 27.0-31.0 [facility] QktejojBQYKPQXOWG3748-48-39 08:18:0033.9[facility]annHEMATOLOGY 2015-06-01 08:18:0084.2[facility] WckiudaZHBKMXXJRP2738-65-24 08:18:009.8[facility] QjsijucBZJYXNVIMV5445-26-02 08:18:0012.4[facility] LihlmczAURKAYCLIS6848-42-25 08:18:10880Eieqovjr HfhoewlDHKZMVPSAI7923-39-23 08:18:0046.0[facility] ICKZQGIQUO2346-32-53 08:18:0015.6[facility] NqfxaerNYUPYXVXFP3928-83-59 08:18:00 5.46[facility] XhsqtprGDYSITQUJD3300-99-53 08:18:0011.2[facility]annHEMATOLOGY 2015-06-01 08:18:000.2[facility] MkfktkrSNASDUKNOH2615-77-32 08:18:000.6[facility] CnccifpGBVIZUZMFY3426-92-28 08:18:004.6[facility] RnpuggaBRUKGNKISZ5129-31-55 08:18:005.8[facility] TdgfnbiIIJZHOJALW7874-03-80 08:18:002.1[facility] VUAMEDMXMG0448-73-03 08:18:005.0[facility] NzwtxptNWMMOKJGMM6309-30-37 08:18:00 51.6[facility] QypspxhSGKMOIXPIC1104-78-83 08:18:0041.1[facility]annHEMATOLOGY 2015-06-01 08:18:000.2[facility]annCHEM URGQM0316-41-77 11:07:88012Havubxro HermannCHEM CUIAL1104-70-29 11:07:71770Ijuxkeuq HermannCHEM DJKVR4002-08-95 11:07:0029[facility]annCHE[facility] YJCWO6128-17-67 11:07:0023[facility]annCHEM OXTQS5583-16-81 11:07:008.5[facility]annCHEM WUDRW6577-82-70 11:07:000.2 [facility]annCHE[facility] YZMTZ2102-14-80 11:07:007.8[facility]annCHEM PANEL 2015-05-21 11:07:0039[facility]annCHEM TCLIB2554-61-35 11:07:003.6[facility]annCHEM XEZTG8303-86-84 11:07:0064[facility]annCHEM HKWNZ5251-27-88 11:07:13317Lnmsufed HermannCHEM FNWVU3782-78-75 11:07:003.9[facility]annCHEM OBCNT3867-37-33 11:07:005[facility]annCHEM KSTYK0262-73-46 11:07:34888 [facility]annCHE[facility] LKDAN7987-68-04 11:07:21957Toblbcpp HermannCHEM PANEL 2015-05-21 11:07:000.7[facility]annCHEM TOAXM1122-49-42 11:07:000.9[facility]annCHEM MQTLL2242-85-35 11:07:0013.9[facility]annCHEM WGNFK0441-04-73 11:07:004.2[facility]annCHEM KKGDF8499-75-21 11:07:007[facility] DRXWDQEICMEEN7245-40-65 11:07:00<1[facility] GufcwpjPPPHAEBLSL6917-07-25 11:07:00 3.1[facility] NaqdlouGSREGAUBUQ6552-89-91 11:07:000.5[facility]annHEMATOLOGY 2015-05-21 11:07:000.2[facility] IjpamcgHDGGAXVMJF8718-48-37 11:07:0055.2[facility] FmmpcveNZCDTIIHRL5481-05-89 11:07:0036.3[facility] LsrmnquBJGAFWMBHB1195-27-30 11:07:002.6[facility] CtthtqlUVIIGEOWPR2916-09-84 11:07:005.8[facility] ALIRVRAHXK6310-50-78 11:07:004.8[facility] NalapetSLMUOBNCMF7337-15-30 11:07:000.1 [facility] GadlljlHKTCUJBIWP0876-42-58 11:07:009.7[facility]annHEMATOLOGY 2015-05-21 11:07:68468Nyepxmkh SbqtfemABIBOKQVUA9516-64-00 11:07:0014.1[facility] CegntcnLPBNPWBPYL6711-05-79 11:07:0041.6[facility] SenmvliCUYVMRPWJN5611-85-82 11:07:0082.4[facility] VoteetnEXVPCKVIPB9035-15-25 11:07:0034.0[facility] XNYFDEQJJO7690-76-93 11:07:00* Test Item Value Reference Range Interpretation Comments MCH (test code = MCH) 28.0 pg 27.0-31.0 [facility] BasxirrREMTTYMITY6845-02-89 11:07:0012.6[facility]annHEMATOLOGY 2015-05-21 11:07:008.6[facility] ThdewriTFEWJSJYBB6063-60-49 11:07:005.04[facility] PPLES8423-42-94 11:07:00Negative (05/21/15 6:07 AM)[facility] AIDJZ9909-06-89 11:07:00Negative (05/21/15 6:07 AM)[facility] IOLTT2893-11-00 11:07:00* Test Item Value Reference Range Interpretation Comments UA Spec Grav (test code = UA Spec Grav) 1.010 1 [facility] UEAOJ1787-15-51 11:07:00Clear (05/21/15 6:07 AM)[facility] [id number] 11:07:00Negative (05/21/15 6:07 AM)[facility] [id number] 11:07:00* Test Item Value Reference Range Interpretation Comments UA pH (test code = UA pH) 6.0 1 5.0-8.0 [facility] [id number] 11:07:00Trace *ABN*(05/21/15 6:07 AM) [facility] [id number] 11:07:00Yellow *NA*(05/21/15 6:07 AM) [facility] [id number] 11:07:000.2[facility] [id number] 11:07:00Negative *NA*(05/21/15 6:07 AM)[facility] [id number] 11:07:00Negative *NA*(05/21/15 6:07 AM)[facility] [id number] 11:07:00Negative (05/21/15 6:07 AM)[facility] STOOL 2015-05-21 11:07:00Performed (05/21/15 6:07 AM)[facility] 2015-05-21 11:07:00None Seen (05/21/15 6:07 AM)[facility] 2015-05-21 11:07:00Negative (05/21/15 6:07 AM)[facility]
[2020-08-19 22:15] LABS: BACTERIA,URINE FEW /HPF; EPITHELIAL CELLS,URINE FEW /LPF; RBC,URINE 0-5 /HPF (0-5); WBC,URINE (MAN) 0-5 /HPF (0-5)
== END 2020-08-19 22:45 | disposition home or self-care (01) ==
LOC: ER 21:25
DX: O26.92 Pregnancy related conditions, unspecified, second trimester (principal); O23.42 Unspecified infection of urinary tract in pregnancy, second trimester; M79.7 Fibromyalgia; E28.2 Polycystic ovarian syndrome
CPT/HCPCS: 81001; 99283

== ENCOUNTER 2022-01-28 12:47 | Emergency (ER) | payer OTHER ==
[~2022-01-28] VITALS: Ht 154.9 cm; Wt 83.9 kg
[2022-01-28] MEDS ORDERED: ONDANSETRON HCL INJ 2MG/ML 2ML 2 MG/ML VIAL IV STA (13:08)
[2022-01-28] MEDS ORDERED: SODIUM CHLORIDE 0.9% 1000ML 1,000 ML IV ONE ×2 (13:15→14:30)
[2022-01-28 13:34] LABS: BASOPHILS # (AUTO) 0.1 (0.0-0.1); BASOPHILS % 0.5 % (0.0-1.0); EOSINOPHILS # (AUTO) 0.2 (0.0-0.4); HEMOGLOBIN 15.9 g/dL (12.0-16.0); LYMPHOCYTES # (AUTO) 2.6 (1.0-3.2); LYMPHOCYTES % 17.7 % (18.0-39.1); MEAN CORPUSCULAR HEMOGLOBIN 28.4 pg (28-32); MEAN CORPUSCULAR HGB CONC 33.1 g/dL (31-35); MEAN CORPUSCULAR VOLUME 85.9 fL (81-99); MONOCYTES # (AUTO) 0.7 (0.2-0.8); MONOCYTES % 4.8 % (4.4-11.3); NEUTROPHILS # (AUTO) 10.8 (2.1-6.9); NEUTROPHILS % 73.7 % (38.7-80.0); PLATELET COUNT 264 x10e3/uL (140-360); RED BLOOD COUNT 5.59 x10e6/uL (3.6-5.1); RED CELL DISTRIBUTION WIDTH 13.2 % (11.7-14.4)
[2022-01-28 13:36] LABS: CLARITY,URINE CLEAR (CLEAR); COLOR,URINE YELLOW (YELLOW)
[2022-01-28 13:37] LABS: KETONES,URINE NEGATIVE (NEGATIVE); LEUKOCYTE ESTERASE ,URINE SMALL (NEGATIVE); NITRITE,URINE NEGATIVE (NEGATIVE); PROTEIN,URINE DIPSTICK NEGATIVE (NEGATIVE); URINE UROBILINOGEN 0.2 mg/dL (0.2 - 1)
[2022-01-28 13:47] LABS: RBC,URINE 0-5 /HPF (0-5)
[2022-01-28 13:48] LABS: BACTERIA,URINE RARE /HPF; EPITHELIAL CELLS,URINE FEW /LPF; MUCUS,URINE FEW (RARE)
[2022-01-28 14:01] LABS: AMYLASE 70 U/L (25-125); LIPASE 38 U/L (8-78)
[2022-01-28 14:03] LABS: ALBUMIN 4.1 g/dL (3.5-5.0); ANION GAP 14.6 mmol/L (8-16); CALCIUM 9.9 mg/dL (8.4-10.2); CREATININE, SERUM 0.93 mg/dL (0.57-1.11); POTASSIUM 3.6 mmol/L (3.5-5.1)
[2022-01-28] MEDS ORDERED: IOPAMIDOL 370 MG/ML 200 ML INFUS..BTL INJ ONE (15:09)
[2022-01-28] MEDS ORDERED: SODIUM CHLORIDE 0.9% 50ML 50 ML ONE (15:09)
[2022-01-28] MEDS ORDERED: NITROFURANTOIN100 MG PO (15:11)
[2022-01-28] MEDS ORDERED: ONDANSETRON ODT8 MG PO (15:11)
[2022-01-28 15:20] VITALS: BP 123/84
== END 2022-01-28 15:21 | disposition home or self-care (01) ==
LOC: ER 13:37
DX: R10.13 Epigastric pain (principal); R11.2 Nausea with vomiting, unspecified; N39.0 Urinary tract infection, site not specified; R19.7 Diarrhea, unspecified; I10 Essential (primary) hypertension; J45.909 Unspecified asthma, uncomplicated
CPT/HCPCS: 36415; 74177; 80053; 81001; 82150; 83690; 84484; 84702; 85025; 87086; 93005; 99283; J2405; J7030; Q9967

== ENCOUNTER 2023-10-08 19:47 | Inpatient (IN) | payer BC ==
[~2023-10-08] VITALS: Ht 154.9 cm; Wt 49.9 kg
[~2023-10-08 19:47] MED LIST changes: +CEFPODOXIME PR200 MG PO; +DEXAMETHASONE SOD PHOS INJ 4 MG/ML SDV ONE; +FLOMAX0.4 MG PO; +KETOROLAC TROME10 MG PO; +LIDOCAINE HCL 2% LOCAL INJ 5 ML SDV VIAL INJ ONE; +METOCLOPRAMIDE10 MG PO; +NITROFURANTOIN100 MG PO; +OMEPRAZOLE40 MG PO; +ONDANSETRON HCL INJ 2MG/ML 2ML 2 MG/ML VIAL ONE; +ONDANSETRON ODT8 MG PO; +PROMETHAZINE HC25 M1 PO; +PROPOFOL IV EMULSION 10 MG/ML 20 ML VIAL ONE; +SOLIFENACIN SUC10 MG PO; +TYLENOL #3 PO; +ULTRAM 50MG50 MG PO
[2023-10-08] MEDS ORDERED: KETOROLAC TROMETHAMINE 30 MG/ML VIAL IV STA (19:50)
[2023-10-08] MEDS ORDERED: ONDANSETRON HCL INJ 2MG/ML 2ML 2 MG/ML VIAL IV STA (19:50)
[2023-10-08 20:22] LABS: BASOPHILS % 0.5 % (0.0-1.0); EOSINOPHILS # (AUTO) 0.4 (0.0-0.4); HEMATOCRIT 41.4 % (34.2-44.1); HEMOGLOBIN 13.6 g/dL (12.0-16.0); LYMPHOCYTES # (AUTO) 2.8 (1.0-3.2); LYMPHOCYTES % 33.5 % (18.0-39.1); MEAN CORPUSCULAR HGB CONC 32.9 g/dL (31-35); MEAN CORPUSCULAR VOLUME 88.3 fL (81-99); MONOCYTES # (AUTO) 0.5 (0.2-0.8); MONOCYTES % 5.4 % (4.4-11.3); NEUTROPHILS # (AUTO) 4.6 (2.1-6.9); NEUTROPHILS % 54.9 % (38.7-80.0); PLATELET COUNT 268 x10e3/uL (140-360); RED BLOOD COUNT 4.69 x10e6/uL (3.6-5.1); RED CELL DISTRIBUTION WIDTH 12.6 % (11.7-14.4)
[2023-10-08 20:27] LABS: CLARITY,URINE SL CLOUDY (CLEAR); COLOR,URINE YELLOW (YELLOW); GLUCOSE, URINE NEGATIVE (NEGATIVE); KETONES,URINE NEGATIVE (NEGATIVE); LEUKOCYTE ESTERASE ,URINE SMALL (NEGATIVE); NITRITE,URINE NEGATIVE (NEGATIVE); PH,URINE 6 (5 - 7); PROTEIN,URINE DIPSTICK 1+ (NEGATIVE)
[2023-10-08 20:28] LABS: BILIRUBIN,URINE NEGATIVE (NEGATIVE); PREGNANCY TEST, URINE NEGATIVE (NEGATIVE); URINE UROBILINOGEN 0.2 mg/dL (0.2 - 1)
[2023-10-08 20:35] LABS: ANION GAP 12.7 mmol/L (8-16); CALCIUM 8.8 mg/dL (8.4-10.2); CREATININE, SERUM 0.73 mg/dL (0.57-1.11); POTASSIUM 3.7 mmol/L (3.5-5.1)
[2023-10-08 20:39] LABS: BACTERIA,URINE MODERATE /HPF; EPITHELIAL CELLS,URINE FEW /LPF; RBC,URINE 21-50 /HPF (0-5)
[2023-10-08] MEDS: SODIUM CHLORIDE 0.9% 1000ML 1,000 ML IV SCH (21:36)
[2023-10-08] MEDS ORDERED: SOLIFENACIN SUC10 MG PO (21:41)
[2023-10-08] MEDS ORDERED: ADVAIR 250-501 EACH INH (21:41)
[2023-10-08 21:45] VITALS: BP 114/82; PULSE 72; RESP 18; TEMP 97.1; O2SAT 100
[2023-10-08] MEDS: ONDANSETRON HCL INJ 2MG/ML 2ML 2 MG/ML VIAL IV PRN (21:48)
[2023-10-08] MEDS: Morphine 4mg INJECTION 4 MG/ML INJ IV PRN (21:48)
[2023-10-08 22:06] VITALS: BP 128/80; PULSE 72; RESP 18; TEMP 98.3; O2SAT 99
[2023-10-09] VITALS (9 sets, daily range): BP systolic 103–130; BP diastolic 62–87; PULSE 58–72; RESP 18; TEMP 97.1–98.2; O2SAT 98–100
[2023-10-09] MEDS: ONDANSETRON HCL INJ 2MG/ML 2ML 2 MG/ML VIAL IV PRN ×4 (01:57→22:32)
[2023-10-09] MEDS: Morphine 4mg INJECTION 4 MG/ML INJ IV PRN ×5 (01:58→22:33)
[2023-10-09] MEDS: SODIUM CHLORIDE 0.9% 1000ML 1,000 ML IV SCH ×3 (06:10→15:51)
[2023-10-09] MEDS ORDERED: PHENAZOPYRIDINE HCL 100 MG TAB PO PRN (10:15)
[2023-10-09] MEDS ORDERED: ACETAMINOPHEN/CODEINE 300MG - 30MG TAB PO PRN (10:15)
[2023-10-09] MEDS ORDERED: ACETAMINOPHEN 1000 MG/100 ML IV ONE (10:35)
[2023-10-09] MEDS ORDERED: ACETAMINOPHEN 1000 MG/100 ML 100 ML IV ONE (10:36)
[2023-10-09] MEDS ORDERED: GENTAMICIN 120MG/NS 100ML 100 ML IV ONE (14:00)
[2023-10-09] MEDS: PANTOPRAZOLE SOD 40 MG TABEC PO SCH (14:49)
[2023-10-10 00:02] VITALS: BP 118/81; PULSE 66; RESP 18; TEMP 98.2; O2SAT 99
[2023-10-10] MEDS: Morphine 4mg INJECTION 4 MG/ML INJ IV PRN ×3 (02:24→10:58)
[2023-10-10] MEDS: ONDANSETRON HCL INJ 2MG/ML 2ML 2 MG/ML VIAL IV PRN ×2 (02:25→06:55)
[2023-10-10 04:00] VITALS: BP 115/67; PULSE 65; RESP 18; TEMP 98; O2SAT 100
[2023-10-10] MEDS: SODIUM CHLORIDE 0.9% 1000ML 1,000 ML IV SCH ×2 (05:16→07:00)
[2023-10-10 06:25] LABS: BASOPHILS % 0.3 % (0.0-1.0); EOSINOPHILS # (AUTO) 0.1 (0.0-0.4); EOSINOPHILS % 1.4 % (0.0-6.0); HEMATOCRIT 33.9 % (34.2-44.1); HEMOGLOBIN 11.1 g/dL (12.0-16.0); LYMPHOCYTES # (AUTO) 2.5 (1.0-3.2); LYMPHOCYTES % 32.1 % (18.0-39.1); MEAN CORPUSCULAR HEMOGLOBIN 28.8 pg (28-32); MEAN CORPUSCULAR HGB CONC 32.7 g/dL (31-35); MEAN CORPUSCULAR VOLUME 87.8 fL (81-99); MONOCYTES # (AUTO) 0.4 (0.2-0.8); NEUTROPHILS # (AUTO) 4.7 (2.1-6.9); NEUTROPHILS % 60.6 % (38.7-80.0); PLATELET COUNT 215 x10e3/uL (140-360); RED BLOOD COUNT 3.86 x10e6/uL (3.6-5.1); RED CELL DISTRIBUTION WIDTH 12.4 % (11.7-14.4); WHITE BLOOD COUNT 7.73 x10e3/uL (4.8-10.8)
[2023-10-10 06:41] LABS: ANION GAP 9.9 mmol/L (8-16); CALCIUM 8.1 mg/dL (8.4-10.2); CREATININE, SERUM 0.64 mg/dL (0.57-1.11); POTASSIUM 3.9 mmol/L (3.5-5.1)
[2023-10-10] MEDS: PANTOPRAZOLE SOD 40 MG TABEC PO SCH (07:34)
[2023-10-10 08:42] VITALS: BP 111/68; PULSE 65; RESP 16; TEMP 98.3; O2SAT 100
[2023-10-10] MEDS ORDERED: SOLIFENACIN SUCCINATE 5 MG TAB PO SCH (09:00)
[2023-10-10 09:14] VITALS: BP 111/68; PULSE 65; RESP 16; TEMP 98.3; O2SAT 100
[2023-10-10 10:35] VITALS: BP 111/68; PULSE 65; RESP 16; TEMP 98.3; O2SAT 100
[2023-10-14] MEDS ORDERED: MONTELUKAST SOD10 MG PO (23:24)
== END 2023-10-10 11:42 | disposition home or self-care (01) | DRG 694 ==
LOC: ER 19:55 → ERHOLD 21:01 → MED/SURG 21:23
PROVIDERS: ADMIT Internal Medicine; ATTEND Internal Medicine
PROC: 0TF7XZZ Fragmentation in Left Ureter, External Approach (ICD-10-PCS; principal; 2023-10-09 09:30)
DX: N20.2 Calculus of kidney with calculus of ureter (principal); N39.0 Urinary tract infection, site not specified; I10 Essential (primary) hypertension; K21.9 Gastro-esophageal reflux disease without esophagitis; J45.909 Unspecified asthma, uncomplicated; Z11.52 Encounter for screening for COVID-19; G47.30 Sleep apnea, unspecified; Z88.0 Allergy status to penicillin; Z90.49 Acquired absence of other specified parts of digestive tract; Z98.84 Bariatric surgery status
CPT/HCPCS: 36415; 50590; 74018; 80048; 81001; 81025; 85025; 87086; 96361; 99284; J0696; J1100; J1580; J1885; J2001; J2270; J2405; J7030; U0002

== ENCOUNTER 2024-12-07 11:11 | Emergency (ER) | payer BC ==
[~2024-12-07] VITALS: Ht 154.9 cm; Wt 49.9 kg
[~2024-12-07 11:11] MED LIST changes: +ADVAIR 250-501 EACH INH; -DEXAMETHASONE SOD PHOS INJ 4 MG/ML SDV ONE; -LIDOCAINE HCL 2% LOCAL INJ 5 ML SDV VIAL INJ ONE; +MONTELUKAST SOD10 MG PO; -ONDANSETRON HCL INJ 2MG/ML 2ML 2 MG/ML VIAL ONE; -PROPOFOL IV EMULSION 10 MG/ML 20 ML VIAL ONE
[2024-12-07 12:09] LABS: BASOPHILS % 0.3 % (0.0-1.0); EOSINOPHILS % 0.5 % (0.0-6.0); HEMATOCRIT 43.6 % (34.2-44.1); HEMOGLOBIN 13.4 g/dL (12.0-16.0); LYMPHOCYTES # (AUTO) 0.4 (1.0-3.2); LYMPHOCYTES % 9.7 % (18.0-39.1); MEAN CORPUSCULAR HEMOGLOBIN 29.3 pg (28-32); MEAN CORPUSCULAR HGB CONC 30.7 g/dL (31-35); MEAN CORPUSCULAR VOLUME 95.4 fL (81-99); MONOCYTES # (AUTO) 0.3 (0.2-0.8); NEUTROPHILS % 81.4 % (38.7-80.0); PLATELET COUNT 170 x10e3/uL (140-360); RED BLOOD COUNT 4.57 x10e6/uL (3.6-5.1); RED CELL DISTRIBUTION WIDTH 12.9 % (11.7-14.4); WHITE BLOOD COUNT 3.73 x10e3/uL (4.8-10.8)
[2024-12-07] MEDS: SODIUM CHLORIDE 0.9% 1000ML 1,500 ML IV ONE (12:14)
[2024-12-07] MEDS: IBUPROFEN 600 MG TAB PO STA (12:15)
[2024-12-07 12:24] LABS: INR 0.94; PROTHROMBIN TIME 13.2 seconds (11.9-14.5)
[2024-12-07 12:25] LABS: PARTIAL THROMBOPLASTIN TIME 31.1 seconds (23.8-35.5)
[2024-12-07 12:32] VITALS: PULSE 104; RESP 18; TEMP 102
[2024-12-07 12:33] LABS: ALANINE AMINOTRANSFERASE 29 IU/L (0-55); ALBUMIN 4.2 g/dL (3.5-5.0); ALBUMIN/GLOBULIN RATIO 1.1 (0.8-2.0); ALKALINE PHOSPHATASE 64 IU/L (40-150); ANION GAP 17.8 mmol/L (8-16); BILIRUBIN,TOTAL 0.3 mg/dL (0.2-1.2); BLOOD UREA NITROGEN 6 mg/dL (7-26); BUN/CREATININE RATIO 8 (6-25); CALCIUM 9.6 mg/dL (8.4-10.2); CARBON DIOXIDE 22 mmol/L (22-29); CHLORIDE 105 mmol/L (98-107); CREATININE, SERUM 0.72 mg/dL (0.57-1.11); EST GLOMERULAR FILTRATION RATE 109 ML/MIN (>=60); GLUCOSE 77 mg/dL (74-118); POTASSIUM 3.8 mmol/L (3.5-5.1); SODIUM 141 mmol/L (136-145)
[2024-12-07 12:34] LABS: CORONAVIRUS COVID-19 AG NEGATIVE (NEGATIVE); INFLUENZA A AG NEGATIVE (NEGATIVE); INFLUENZA B AG NEGATIVE (NEGATIVE)
[2024-12-07 12:35] LABS: BILIRUBIN,URINE NEGATIVE (NEGATIVE); CLARITY,URINE TURBID (CLEAR); COLOR,URINE YELLOW (YELLOW); GLUCOSE, URINE NEGATIVE (NEGATIVE); KETONES,URINE NEGATIVE (NEGATIVE); LEUKOCYTE ESTERASE ,URINE SMALL (NEGATIVE); NITRITE,URINE NEGATIVE (NEGATIVE); PH,URINE 6 (5 - 7); PROTEIN,URINE DIPSTICK NEGATIVE (NEGATIVE); URINE UROBILINOGEN 0.2 mg/dL (0.2 - 1)
[2024-12-07 12:37] LABS: BACTERIA,URINE MANY /HPF; EPITHELIAL CELLS,URINE MODERATE /LPF; RBC,URINE 0-5 /HPF (0-5)
[2024-12-07] MEDS ORDERED: IOPAMIDOL 370 MG/ML 100 ML INFUS..BTL INJ ONE (12:49)
[2024-12-07] MEDS ORDERED: ONDANSETRON HCL INJ 2MG/ML 2ML 2 MG/ML VIAL ONE (13:01)
[2024-12-07] MEDS: ONDANSETRON HCL INJ 2MG/ML 2ML 2 MG/ML VIAL IV STA (13:07)
[2024-12-07] MEDS: ACETAMINOPHEN 325 MG TAB PO ONE (14:57)
[2024-12-07] MEDS ORDERED: CEFPODOXIME PR100 MG PO (16:22)
[2024-12-07 16:36] VITALS: BP 124/62; PULSE 98; RESP 18; TEMP 99.6; O2SAT 99
== END 2024-12-07 16:41 | disposition home or self-care (01) ==
LOC: ER 11:42
DX: R50.9 Fever, unspecified (principal); N39.0 Urinary tract infection, site not specified; J45.909 Unspecified asthma, uncomplicated; Z11.52 Encounter for screening for COVID-19; Z87.442 Personal history of urinary calculi; Z98.84 Bariatric surgery status
CPT/HCPCS: 36415; 71046; 74177; 80053; 81001; 83605; 84702; 85025; 85610; 85730; 87040; 87086; 87428; 99284; J0696; J2405; J7030; Q9967; 93005

== ENCOUNTER 2024-12-19 17:11 | Emergency (ER) | payer BC ==
[~2024-12-19] VITALS: Ht 154.9 cm; Wt 49.9 kg
[~2024-12-19 17:11] MED LIST changes: +CEFPODOXIME PR100 MG PO
[2024-12-19 18:57] LABS: BASOPHILS % 0.4 % (0.0-1.0); EOSINOPHILS # (AUTO) 0.1 (0.0-0.4); EOSINOPHILS % 0.9 % (0.0-6.0); HEMATOCRIT 40.4 % (34.2-44.1); HEMOGLOBIN 13.2 g/dL (12.0-16.0); LYMPHOCYTES # (AUTO) 2.9 (1.0-3.2); LYMPHOCYTES % 35.8 % (18.0-39.1); MEAN CORPUSCULAR HEMOGLOBIN 28.3 pg (28-32); MEAN CORPUSCULAR HGB CONC 32.7 g/dL (31-35); MEAN CORPUSCULAR VOLUME 86.5 fL (81-99); MONOCYTES # (AUTO) 0.4 (0.2-0.8); MONOCYTES % 5.2 % (4.4-11.3); NEUTROPHILS # (AUTO) 4.5 (2.1-6.9); PLATELET COUNT 394 x10e3/uL (140-360); RED BLOOD COUNT 4.67 x10e6/uL (3.6-5.1); WHITE BLOOD COUNT 8.05 x10e3/uL (4.8-10.8)
[2024-12-19 19:03] LABS: CLARITY,URINE CLEAR (CLEAR); COLOR,URINE YELLOW (YELLOW); PH,URINE 7 (5 - 7)
[2024-12-19 19:04] LABS: BILIRUBIN,URINE NEGATIVE (NEGATIVE); GLUCOSE, URINE NEGATIVE (NEGATIVE); KETONES,URINE NEGATIVE (NEGATIVE); LEUKOCYTE ESTERASE ,URINE NEGATIVE (NEGATIVE); NITRITE,URINE NEGATIVE (NEGATIVE); PROTEIN,URINE DIPSTICK NEGATIVE (NEGATIVE); URINE UROBILINOGEN 1 mg/dL (0.2 - 1)
[2024-12-19 19:05] LABS: BACTERIA,URINE RARE /HPF; MUCUS,URINE RARE (RARE); RBC,URINE 0-5 /HPF (0-5); WBC,URINE (MAN) 0-5 /HPF (0-5)
[2024-12-19 19:13] LABS: ALBUMIN 4.3 g/dL (3.5-5.0); ALBUMIN/GLOBULIN RATIO 1.4 (0.8-2.0); ANION GAP 16.9 mmol/L (8-16); BILIRUBIN,TOTAL 0.2 mg/dL (0.2-1.2); CREATININE, SERUM 0.7 mg/dL (0.57-1.11); POTASSIUM 3.9 mmol/L (3.5-5.1); TOTAL PROTEIN 7.4 g/dL (6.5-8.1)
[2024-12-19 19:16] LABS: LIPASE 48 U/L (8-78)
[2024-12-19] MEDS: ONDANSETRON HCL INJ 2MG/ML 2ML 2 MG/ML VIAL IV STA (21:11)
[2024-12-19] MEDS ORDERED: IOPAMIDOL 370 MG/ML 100 ML INFUS..BTL INJ ONE (21:45)
[2024-12-19] MEDS: SODIUM CHLORIDE 0.9% 1000ML 1,000 ML IV ONE (22:11)
[2024-12-19] MEDS: Morphine 4mg INJECTION 4 MG/ML INJ IV ONE (22:11)
[2024-12-20] MEDS ORDERED: ONDANSETRON ODT4 MG SL (00:03)
[2024-12-20] MEDS ORDERED: PANTOPRAZOLE SO40 MG PO (00:03)
[2024-12-20] MEDS ORDERED: DICYCLOMINE HCL20 MG PO (00:03)
[2024-12-20 00:11] VITALS: PULSE 66; RESP 16; TEMP 98.6; O2SAT 100
== END 2024-12-20 00:12 | disposition home or self-care (01) ==
LOC: ER 21:25
DX: R10.13 Epigastric pain (principal); R11.2 Nausea with vomiting, unspecified; J45.909 Unspecified asthma, uncomplicated; Z87.19 Personal history of other diseases of the digestive system; Z87.442 Personal history of urinary calculi; Z98.84 Bariatric surgery status
CPT/HCPCS: 36415; 74177; 80053; 81001; 83690; 84702; 85025; 99284; J2270; J2405; J2470; J7030; Q9967